=== PATIENT | female | born 1950 | race Caucasian/White ===

== ENCOUNTER 2017-04-07 16:17 | Inpatient (IN) | payer MEDICARE, MEDICAID ==
[~2017-04-07] VITALS: Ht 175.3 cm; Wt 79.1 kg
[~2017-04-07 16:17] MED LIST: ACET325T9 PO; ARIP5TAB13 PO; CHOL4POW11 PO; CYAN1TAB28 PO; DEXT15DR5 OP; DIVA500T2 PO; DONE10TA7 PO; LURA40TA PO; MAG30ORA2 PO; MAGN2400 PO; METH29OI TP; OMEP20TA8 PO; PANT40TA3 PO; PNV1TABL25 PO; POLY17PO5 PO; PRAZ1POW3 MC; PRAZ2CAP2 PO; SENN1TAB21 PO; TOPI100T8 PO; TRAM50TA PO; [UNRECOGNIZED DRUG - CODE] OP
--- NOTE | 2017-04-07 17:34 | RAD ---
CT head Indication: Dementia, altered mental status, educated Technique: CT head without IV contrast Comparison: None Findings: No pathologic extra-axial or intra-axial fluid collection. The ventricles and basal cisterns are within normal limits. No acute intracranial bleed. No loss of focal álvarez-white differentiation. No midline shift. Visualized orbits are within normal limits. No calvarial lesions. Visualized paranasal sinuses and mastoid air cells are clear. Impression: No acute intracranial process on this noncontrast CT. PQRS Compliance Statement: One or more of the following individualized dose reduction techniques were utilized for this examination: 1. Automated exposure control 2. Adjustment of the mA and/or kV according to patient size 3. Use of iterative reconstruction technique
--- NOTE | 2017-04-07 17:36 | RAD ---
Chest x-ray Indication: Cough. Technique: Portable AP upright chest x-ray Comparison: None Findings: Heart is normal in size. Lungs are clear. No pneumothorax or pleural effusion. Visualized bony thorax within normal limits. Metallic densities are seen projecting over the left hemiabdomen. Impression: No acute cardiopulmonary process. Metallic densities projecting over the left hemiabdomen. Correlate for external artifacts.
--- NOTE | 2017-04-07 18:00 | PHYS DOC ---
Past History Past Medical History: Anxiety, Depression, GERD, Migraines, Schizophrenia Past Surgical History: Knee Replacement Alcohol Use: None Drug Use: None Adult General Chief Complaint Chief Complaint: MEDICAL EXAMINATION HPI HPI 67-year-old female presenting to the emergency department as a transfer from a local longterm. The patient was planned to be admitted to our geriatric psychiatric facility, however the patient was sent to the emergency department for medical examination clearance. The patient is a poor historian and is unable to answer my questions. She is alert. She opens her eyes spontaneously. alf reports the patient has a history of rectal prolapse for which she is scheduled to have surgery in 3-4 weeks reportedly. Otherwise, the patient's longterm reports that the patient complains of pain "all over" chronically. They report this is baseline for the patient. They deny any acute changes in the patient's mental status. Onset years. Location generalized. Duration constant. No alleviating factors present. She was sent here to our geriatric psychiatric facility for increasing agitation. Review of systems was negative for chest pain shortness of breath abdominal pain nausea vomiting. All other review of systems is negative unless otherwise noted in history of present illness. ED course: 67-year-old female presenting to the emergency department today for medical screening examination and clearance with plans to admission for geriatric psychiatric facility here at our hospital. Triage vital signs show the patient had mild hypertension. Pulse rate is within normal limits. Breathing resting comfortably in the examination room saturating well on room air. The patient is afebrile. Pertinent physical examination findings show clear lungs to auscultation bilaterally abdomen is soft and nontender. During the examination the patient nonsensically states that she hurts all over. She is unable to explain and better detail what she means. Reportedly this is chronic from the longterm. Her abdomen appears to be nontender objectively. It is nondistended with normal bowel sounds with a negative McBurney's and Barbosa's sign. EKG obtained and reviewed by myself shows sinus rhythm with a regular rate. ST segments congruent. Not suggestive of ACS. I ordered for blood work to be drawn along with urinalysis and a head CT. Head CT negative. Chest x- ray obtained and reviewed by myself shows no obvious infiltrate or pneumothorax. Noted on chest x-ray that the upright and portable labile is covering the patient's clavicle and humerus which cannot be visualized on this x -ray. Unfortunately the patient's blood work was not back at 6 PM when the patient was signed out to Dr. Marshall with plans to follow-up on blood work and reexamination for medical clearance to be admitted to the psychiatric facility. Review of Systems Review of Systems SEE ABOVE Allergies Allergies Allergies Coded Allergies Type Severity Reaction Last Updated Verified codeine Allergy Intermediate 09/18/14 Yes Uncoded Allergies Type Severity Reaction Last Updated Verified spinach Adverse Reaction Unknown 09/07/14 Physical Exam Physical Exam Constitutional: Well developed, well nourished, non-toxic appearance. HENT: Normocephalic, atraumatic, bilateral external ears normal, oropharynx moist, no oral exudates, nose normal. [] Eyes: PERRLA, EOMI, conjunctiva normal, no discharge. Neck: Normal range of motion, no tenderness, supple, no stridor. [] Cardiovascular:Heart rate regular rhythm, no murmur [] Lungs & Thorax: Bilateral breath sounds clear to auscultation [] Abdomen: Bowel sounds normal, soft, no tenderness, no masses, no pulsatile masses. Skin: Warm, dry, no erythema, no rash. [] Back: No tenderness, no CVA tenderness. [] Extremities: No tenderness, no cyanosis, no clubbing, ROM intact, no edema. Neurologic: Alert and oriented X 3, normal motor function, normal sensory function, no focal deficits noted. [] Psychologic: Affect normal, judgement normal, mood normal. Current Patient Data Vital Signs Vital Signs Date Time Temp Pulse Resp B/P (MAP) Pulse Ox O2 Delivery O2 Flow Rate FiO2 04/07/17 16:19 76 20 98 Room Air EKG EKG [] Radiology/Procedures Radiology/Procedures [] Course & Med Decision Making Course & Med Decision Making Pertinent Labs and Imaging studies reviewed. (See chart for details) [] Dragon Disclaimer Dragon Disclaimer This chart was dictated in whole or in part using Voice Recognition software in a busy, high-work load, and often noisy Emergency Department environment. It may contain unintended and wholly unrecognized errors or omissions. CELESTINE BARRETO MD Apr 07, 2017 18:00
[2017-04-07 18:08] LABS: BASO % 1 % (0-3); EOS # 0.1 x10^3/uL (0.0-0.7); EOS % 2 % (0-3); HEMATOCRIT 35.2 % (36.0-47.0); LYMPH # 2.7 x10^3/uL (1.0-4.8); LYMPH % 52 % (24-48); MEAN CORPUSCULAR HEMOGLOBIN 34 pg (25-35); MEAN CORPUSCULAR HGB CONC 34 g/dL (31-37); MEAN CORPUSCULAR VOLUME 100 fL (79-100); MONO # 0.8 x10^3/uL (0.0-1.1); MONO % 14 % (0-9); NEUT # 1.6 x10^3uL (1.8-7.7); NEUT % 31 % (31-73); PLATELET COUNT 162 x10^3/uL (140-400); RED BLOOD COUNT 3.53 x10^6/uL (3.50-5.40); WHITE BLOOD COUNT 5.3 x10^3/uL (4.0-11.0)
[2017-04-07 18:16] LABS: ALBUMIN 2.9 g/dL (3.4-5.0); CALCIUM 8.5 mg/dL (8.5-10.1); CREATININE 0.7 mg/dL (0.6-1.0); DIRECT BILIRUBIN 0.1 mg/dL (0.0-0.2); GFR 83.2; POTASSIUM 4.1 mmol/L (3.5-5.1); TOTAL BILIRUBIN 0.2 mg/dL (0.2-1.0); TOTAL PROTEIN 6.2 g/dL (6.4-8.2)
--- NOTE | 2017-04-07 18:50 | EKG ---
[address] [address] Test Date: 2017-04-07 Test Time: 16:57:59 Pat Name: BARBARA FONTENOT Department: Room: Gender: F Work Station Support Specialist: SIRI : 1950 Requested By: CELESTINE BARREOT Order Number: [id number] Reading MD: Measurements Intervals [place] Rate: 66 P: 43 HI: 166 QRS: 31 QRSD: 72 T: 34 QT: 372 QTc: 392 Interpretive Statements SINUS RHYTHM NO SPECIFIC ECG ABNORMALITIES RI6.01 No previous ECG available for comparison
[2017-04-07 19:01] LABS: BACTERIA,URINE MANY /HPF (0-FEW); BILIRUBIN,URINE NEG (NEG); CLARITY,URINE TURBID; COLOR,URINE YELLOW; GLUCOSE,URINE NEG (NEG); NITRITE,URINE POS (NEG); SQUAMOUS EPITHELIAL CELL,UR MOD /LPF; UROBILINOGEN,URINE 1 mg/dL (0.2 mg/dL)
[2017-04-07] MEDS ORDERED: cefTRIAXone SODIUM 1 GM VIAL IV ONE (19:20)
[2017-04-07] MEDS ORDERED: IV NORMAL SALINE 50ML 50 ML ONE (19:20)
[2017-04-07] MEDS ORDERED: MAG HYDROX/AL HYDROX/SIMETH 30 ML ORAL.SUSP PO PRN (22:15)
[2017-04-07] MEDS ORDERED: MAGNESIUM HYDROXIDE 2,400 MG/30 ML ORAL.SUSP. PO PRN (22:15)
[2017-04-07] MEDS ORDERED: METHYL SALICYLATE/MENTHOL TOPICAL OINTMENT 29GM TUBE. TP PRN (22:15)
[2017-04-07] MEDS ORDERED: ACETAMINOPHEN 325 MG TABLET PO PRN (22:15)
[2017-04-07 22:57] VITALS: BP 127/73
[2017-04-07] MEDS ORDERED: FOLI1TAB16 PO (23:15)
[2017-04-07] MEDS ORDERED: CYAN50008 PO (23:15)
[2017-04-07] MEDS ORDERED: IBUP400T18 PO (23:15)
[2017-04-08] MEDS ORDERED: Influenza vaccine per PROTOCOL. MC PRN (00:30)
[2017-04-08] MEDS ORDERED: LORazepam 0.5 MG TABLET PO PRN (03:30)
[2017-04-08 06:30] VITALS: BP 131/96
[2017-04-08] MEDS ORDERED: ACETAMINOPHEN 325 MG TABLET PO PRN (07:00)
[2017-04-08] MEDS ORDERED: IBUPROFEN 200 MG TABLET PO PRN (08:00)
[2017-04-08] MEDS: CYANOCOBALAMIN (VITAMIN B-12) 1,000 MCG TABLET. PO SCH (08:11)
[2017-04-08] MEDS: TOPIRAMATE 100 MG TABLET. PO SCH ×2 (08:12→20:07)
[2017-04-08] MEDS: FOLIC ACID 1 MG TABLET PO SCH (08:12)
[2017-04-08] MEDS: DIVALPROEX SODIUM 250 MG TABLET.DR. PO SCH ×3 (08:12→20:07)
[2017-04-08 08:47] LABS: VAL ACID 57 mcg/mL (50-100)
[2017-04-08 14:53] LABS: THYROID STIM HORMONE (TSH) 10.24 uIU/mL (0.358-3.740)
[2017-04-08] MEDS ORDERED: FOSFOMYCIN TROMETHAMINE 3 GM PACKET PO ONE (16:30)
[2017-04-08] MEDS: ACETAMINOPHEN 325 MG TABLET PO SCH ×2 (16:37→20:13)
[2017-04-08] MEDS: IBUPROFEN 200 MG TABLET PO SCH (16:38)
[2017-04-08 16:48] VITALS: BP 103/65
--- NOTE | 2017-04-08 17:34 | HP ---
ADMIT DATE: 04/08/2017 MEDICAL HISTORY AND PHYSICAL FOR THE SENIOR BEHAVIORAL UNIT REASON FOR ADMISSION TO THE SENIOR BEHAVIORAL UNIT: This is a 67-year-old female who had a prior admission to the [facility] in 2014. She comes from [place], [place] where she has been refusing to eat, standing in her room, yelling, repetitively screaming and going to the bathroom or shower and isolating herself. She has gone from 206 pounds to 275 pounds on the intake sheet. Things that have occurred, the patient has had several teeth pulled. She has no medication changes, but the onset of symptoms started in December or January. PAST MEDICAL HISTORY: Schizoaffective disorder; prolapsed anus; dementia; posttraumatic stress disorder; anxiety; migraine headaches; hyperlipidemia; major depressive disorder, severe with psychotic features; chronic kidney disease; constipation; and recent teeth extraction. Also had an admission in September 2014 for yelling and screaming at roommates, calling staff by names, threatening other residents. ALLERGIES: CODEINE and SPINACH. MEDICATIONS: Reviewed and are available on the MAR. REVIEW OF SYSTEMS: The patient ambulated to the dining area where I examined her and started to complain of chest pain, that everywhere I touched her, she started yelling as if that hurts and kept saying "I have chest pain, I have chest pain, I have chest pain." Vital signs did not reflect the patient was not tachycardic. PHYSICAL EXAMINATION: VITAL SIGNS: Blood pressure taken during the physical exam 125/67, pulse 82, saturation 96% on room air. GENERAL: The patient has very thinning hair. HEENT: Her pupils were equal, round, react to light. Extraocular muscles are intact. Her nose was patent. Her throat was clear. NECK: Supple. LUNGS: Clear to auscultation. CARDIOVASCULAR: Regular rhythm and rate, was not pounding, there was no murmur. ABDOMEN: Soft, nontender. EXTREMITIES: Without edema. MUSCULOSKELETAL: Sore shoulders, sore knees, sore feet, palpable costochondritis type pain over the chest. NEUROLOGIC: Cranial nerves appear to be essentially intact, but she was not overly cooperative with that. Her gait is unsteady, and she was ambulating with a walker. Mood is anxious and making repetitive statements about having chest pain. LABORATORY DATA: TSH was 10.240. Iron is 40, AST 13, normal potassium. Urine positive for nitrites, 11-20 white cells, moderate squamous epithelial cells. Culture is still pending. ASSESSMENT: A 67-year-old with: 1.Schizoaffective disorder. 2.Dementia with behavior disturbance. 3.Costochondritis chest pain. 4.Urinary tract infection. 5.Myalgias. PLAN: Treat her medical conditions, treat her urinary tract infection. Adding some Synthroid if she is not on it and we will go from there. MAX WARREN DO DR: ANGELO/chely JOB#: [id number] / [id number]
[2017-04-08 19:11] LABS: T3 TOTAL 91 ng/dL (71-180); THYROXINE 5.5 ug/dL (4.5-12.0)
[2017-04-08] MEDS: ATORVASTATIN CALCIUM 20 MG TABLET PO SCH (20:12)
[2017-04-08] MEDS ORDERED: ARIPiprazole 5 MG TABLET PO SCH (21:00)
--- NOTE | 2017-04-08 21:07 | PDOC ---
Exam Brennen Demential Exam: Brennen Note: Please also refer to the separate dictated note~for this date of service dictated separately.~Patient seen individually. Discussed the patient with Nursing staff reviewed the chart.~Reviewed interim history and current functioning. Reviewed vital signs,~Labs/ Radiology~and current medications noted below. Continue current treatment with the changes noted in the dictated addendum note Assessment: Vital Signs: Vital Signs Date Time Temp Pulse Resp B/P (MAP) Pulse Ox O2 Delivery O2 Flow Rate FiO2 04/08/17 16:48 98.6 74 20 103/65 (78) 97 04/07/17 21:01 Room Air I&O Intake and Output 04/09/17 07:00 Intake Total 840 ml Balance 840 ml Intake Oral 840 ml Labs: Laboratory Tests Test 04/08/17 06:58 Valproic Acid Level 57 mcg/mL (50-100) Valproic Acid Last Dose Date 04/07/2017 Valproic Acid Last Dose Time 2100 Current Medications: Meds: Current Medications Ceftriaxone Sodium 1 gm/ Sodium Chloride 50 ml @ 100 mls/hr 1X ONCE IV Last administered on 04/07/17t 19:30; Start 04/07/17 at 19:30; Stop 04/07/17 at 19:59 ; Status DC Sodium Chloride 50 ml @ As Directed STK-MED ONCE .ROUTE ; Start 04/07/17 at 19: 20; Stop 04/07/17 at 19:21; Status DC Ceftriaxone Sodium (Rocephin) 1 gm STK-MED ONCE IV ; Start 04/07/17 at 19:20; Stop 04/07/17 at 19:21; Status DC Acetaminophen (Tylenol) 650 mg PRN Q6HRS PRN PO PAIN / TEMP; Start 04/07/17 at 22:15; Stop 04/08/17 at 15:31; Status DC Multi-Ingredient Ointment (Analgesic [place]) 1 chencho PRN QID PRN TP MUSCLE PAIN; Start 04/07/17 at 22:15 Al Hydroxide/Mg Hydroxide (Mylanta Plus Xs) 15 ml PRN AFTMEALHC PRN PO DYSPEPSIA; Start 04/07/17 at 22:15 Magnesium Hydroxide (Milk Of Magnesia) 2,400 mg PRN QHS PRN PO CONSTIPATION; Start 04/07/17 at 22:15 Info (FLU VACCINE per PROTOCOL) 1 ea PRN 1X PRN MC UNABLE TO RESPOND; Start at 00:30; Status Cancel Aripiprazole (Abilify) 10 mg HS PO Last administered on 04/08/17 20:12; Start 04/08/17 at 21:00 Topiramate (Topamax) 150 mg BID PO Last administered on 04/08/17 20:07; Start 04/08/17 at 09:00 Divalproex Sodium (Depakote) 500 mg TID PO Last administered on 04/08/17 20:07 ; Start 04/08/17 at 09:00 Lorazepam (Ativan) 1 mg PRN Q2HR PRN PO ANXIETY / AGITATION; Start 04/08/17 at 03:30 Olanzapine (ZyPREXA ZYDIS) 5 mg PRN Q2HR PRN PO Psychosis Last administered on 04/08/17 03:53; Start 04/08/17 at 03:30 Acetaminophen (Tylenol) 650 mg PRN Q6HRS PRN PO PAIN; Start 04/08/17 at 07:00 Folic Acid (Folic Acid) 1 mg DAILY PO Last administered on 04/08/17 08:12; Start 04/08/17 at 09:00 Ibuprofen (Motrin) 200 mg DAILY08 PRN PO INFLAMMATION Last administered on 04/08 08:12; Start 04/08/17 at 08:00; Stop 04/08/17 at 15:35; Status DC Cyanocobalamin (Vitamin B-12) 1,000 mcg DAILY PO Last administered on 08:11; Start 04/08/17 at 09:00 Acetaminophen (Tylenol) 650 mg Q8HRS PO Last administered on 04/08/17 20:13; Start 04/08/17 at 15:45 Fosfomycin Tromethamine (Monurol) 3 gm 1X ONCE PO Last administered on 16:38; Start 04/08/17 at 16:30; Stop 04/08/17 at 16:31; Status DC Ibuprofen (Motrin) 200 mg DAILY08 PO Last administered on 04/08/17 16:38; Start 04/08/17 at 16:30 Levothyroxine Sodium (Synthroid) 25 mcg DAILY06 PO ; Start 04/09/17 at 06:00 Atorvastatin Calcium (Lipitor) 20 mg QHS PO Last administered on 04/08/17t 20: 12; Start 04/08/17 at 21:00 Trazodone HCl (Desyrel) 50 mg PRN QHS PRN PO INSOMNIA, MAY REPEAT X1; Start at 18:30 Active Scripts Active Reported Vitamin B12 (Cyanocobalamin (Vitamin B-12)) 5,000 Mcg Tab.rapdis 1,000 Mcg PO DAILY Folic Acid 1 Mg Tablet 1 Mg PO DAILY Ibuprofen 400 Mg Tablet 200 Mg PO DAILY08 Abilify (Aripiprazole) 5 Mg Tablet 10 Mg PO HS Topiramate 100 Mg Tablet 150 Mg PO BID Depakote (Divalproex Sodium) 500 Mg Tablet.dr 500 Mg PO TID Tylenol (Acetaminophen) 325 Mg Tablet 650 Mg PO PRN Q6HRS PRN Diagnosis: Problems: (1) Depression (2) Behavioral problems (3) Anxiety disorder (4) Schizoaffective disorder, chronic condition with acute exacerbation (5) Schizophrenia, disorganized, subchronic with acute exacerbation (6) Bipolar affective, mixed, sev w/ psych VIRGIE FELDMAN MD Apr 08, 2017 21:07
[2017-04-08 22:09] LABS: HEMOGLOBIN A1C 5.2 % (4.8-5.6)
[2017-04-09] MEDS: ACETAMINOPHEN 325 MG TABLET PO SCH ×3 (05:34→19:32)
[2017-04-09] MEDS: LEVOTHYROXINE 25 MCG TABLET. PO SCH (05:35)
[2017-04-09 06:45] VITALS: BP 117/60
[2017-04-09] MEDS: TOPIRAMATE 100 MG TABLET. PO SCH ×2 (08:10→19:31)
[2017-04-09] MEDS: CYANOCOBALAMIN (VITAMIN B-12) 1,000 MCG TABLET. PO SCH (08:12)
[2017-04-09] MEDS: DIVALPROEX SODIUM 250 MG TABLET.DR. PO SCH ×3 (08:12→19:30)
[2017-04-09] MEDS: IBUPROFEN 200 MG TABLET PO SCH (08:12)
[2017-04-09] MEDS: FOLIC ACID 1 MG TABLET PO SCH (08:12)
--- NOTE | 2017-04-09 12:52 | HP ---
ADMIT DATE: 04/08/2017 PSYCHIATRIC ADMISSION HISTORY/EVALUATION This is a late entry 04/08/2017, covers elements not covered in my initial note of 04/08/2017. Met with the patient the evening of 04/08/2017, for this assessment. IDENTIFYING DATA: The patient is a 67-year-old female who returns back to us from [facility], referred by her primary care physician, Dr. Wheat and outpatient psychiatrist, Dr. Gunter on account of worsening mood swings, psychotic symptoms, agitation and aggression. The patient was refusing to eat, yelling repetitively, isolating herself, screaming. She has dropped her weight from 206 pounds in December to 175 pounds on the day of the admission. She has been repeatedly screaming when going to the bathroom or shower as a response to probable active psychosis. She has failed outpatient psychiatric interventions, referred for inpatient psychiatric stabilization. CHIEF COMPLAINT: "I had shower." HISTORY OF PRESENT ILLNESS: The patient has a history of schizoaffective disorder, bipolar type. [facility] and was last here with us in September 2014. She had been fairly stable at the jail, but for the past couple of weeks, she has been increasingly agitated, psychotic, disruptive, aggressive with marked insomnia, drop in her appetite, significant weight loss. No active suicidal or homicidal ideation, but behaviors have been dangerous to a point that she is a danger to herself and others around her, prompting this referral, having failed outpatient psychiatric interventions with Dr. Gunter. PAST PSYCHIATRIC HISTORY: As above, she was last here with us in 2014. She has a past diagnosis additionally of posttraumatic stress disorder. PAST MEDICAL HISTORY: Positive for chronic constipation, rectal prolapse surgery, chronic kidney disease, hyperlipidemia. Rectal prolapse surgery has not yet occurred however. She was noted to have a UTI in the Emergency Room, received IM Rocephin. Additionally, TSH is elevated at 10.240, will defer to Dr. Subramanian. CODE STATUS: Full code. ALLERGIES: CODEINE, SPINACH. Accu-Cheks: None. DIET: Regular. AMBULATES: Standby assist. SOCIAL HISTORY: No history of alcohol or drug abuse or physical, sexual or elder abuse. She is not known to be a perpetrator. MENTAL STATUS EXAM: The patient was seen individually evening of 04/08/2017. She is oriented to herself, quite repetitive, psychotic, appears more confused than she is baseline and this probably a combination of UTI and exacerbation of her schizoaffective disorder with active psychosis. Speech repetitive. Thought processes are loose. Insight limited, judgment marginal, language function intact. Mood and affect is quite labile. Attention span short. No active suicidal or homicidal ideation. LABORATORY DATA: Reviewed. REVIEW OF SYSTEMS: No CV, , pulmonary, eye, ENT system symptoms on review. Reliability poor. IMPRESSION: Schizoaffective disorder, bipolar type, mixed with psychotic features. History of posttraumatic stress disorder; anxiety disorder, unspecified; impulse control disorder, unspecified; urinary tract infection. Rest of the diagnoses as above. PLAN: Admit to the Geropsychiatry unit at [facility]. I will see the patient daily individually from a psychiatric standpoint. Medical followup with Dr. Subramanian/Dr. Earl. We will check a valproic acid level, adjust Depakote to reach a therapeutic level. Continue Depakote 500 mg t.i.d. for now together with Topamax 150 b.i.d., Abilify 10 mg at bedtime along with p.r.n. Ativan and p.r.n. Zyprexa. We will defer to Dr. Subramanian to address her thyroid status since she seems hypothyroid. We will also add trazodone 50 mg at bedtime and may repeat x 1 p.r.n. insomnia. Further decisions will be made post baseline assessment. VIRGIE FELDMAN MD DR: YUSUF/chely JOB#: [id number] / [id number]
[2017-04-09 16:28] VITALS: BP 108/63
[2017-04-09] MEDS: ATORVASTATIN CALCIUM 20 MG TABLET PO SCH (19:29)
--- NOTE | 2017-04-09 21:11 | PDOC ---
Exam Brennen Demential Exam: Brennen Note: Please also refer to the separate dictated note~for this date of service dictated separately.~Patient seen individually. Discussed the patient with Nursing staff reviewed the chart.~Reviewed interim history and current functioning. Reviewed vital signs,~Labs/ Radiology~and current medications noted below. Continue current treatment with the changes noted in the dictated addendum note Assessment: Vital Signs: Vital Signs Date Time Temp Pulse Resp B/P (MAP) Pulse Ox O2 Delivery O2 Flow Rate FiO2 04/09/17 16:28 98.6 67 20 108/63 (78) 96 04/09/17 06:45 Room Air I&O Intake and Output 04/10/17 07:00 Intake Total 590 ml Balance 590 ml Intake Oral 590 ml Current Medications: Meds: Current Medications Ceftriaxone Sodium 1 gm/ Sodium Chloride 50 ml @ 100 mls/hr 1X ONCE IV Last administered on 04/07/17 19:30; Start 04/07/17 at 19:30; Stop 04/07/17 at 19:59 ; Status DC Sodium Chloride 50 ml @ As Directed STK-MED ONCE .ROUTE ; Start 04/07/17 at 19: 20; Stop 04/07/17 at 19:21; Status DC Ceftriaxone Sodium (Rocephin) 1 gm STK-MED ONCE IV ; Start 04/07/17 at 19:20; Stop 04/07/17 at 19:21; Status DC Acetaminophen (Tylenol) 650 mg PRN Q6HRS PRN PO PAIN / TEMP; Start 04/07/17 at 22:15; Stop 04/08/17 at 15:31; Status DC Multi-Ingredient Ointment (Analgesic [place]) 1 chencho PRN QID PRN TP MUSCLE PAIN; Start 04/07/17 at 22:15 Al Hydroxide/Mg Hydroxide (Mylanta Plus Xs) 15 ml PRN AFTMEALHC PRN PO DYSPEPSIA; Start 04/07/17 at 22:15 Magnesium Hydroxide (Milk Of Magnesia) 2,400 mg PRN QHS PRN PO CONSTIPATION; Start 04/07/17 at 22:15 Info (FLU VACCINE per PROTOCOL) 1 ea PRN 1X PRN MC UNABLE TO RESPOND; Start at 00:30; Status Cancel Aripiprazole (Abilify) 10 mg HS PO Last administered on 04/08/17 20:12; Start 04/08/17 at 21:00; Stop 04/09/17 at 10:17; Status DC Topiramate (Topamax) 150 mg BID PO Last administered on 04/09/17 19:31; Start 04/08/17 at 09:00 Divalproex Sodium (Depakote) 500 mg TID PO Last administered on 04/09/17 19:30 ; Start 04/08/17 at 09:00 Lorazepam (Ativan) 1 mg PRN Q2HR PRN PO ANXIETY / AGITATION; Start 04/08/17 at 03:30 Olanzapine (ZyPREXA ZYDIS) 5 mg PRN Q2HR PRN PO Psychosis Last administered on 04/08/17 03:53; Start 04/08/17 at 03:30 Acetaminophen (Tylenol) 650 mg PRN Q6HRS PRN PO PAIN; Start 04/08/17 at 07:00 Folic Acid (Folic Acid) 1 mg DAILY PO Last administered on 04/09/17 08:12; Start 04/08/17 at 09:00 Ibuprofen (Motrin) 200 mg DAILY08 PRN PO INFLAMMATION Last administered on 04/08 08:12; Start 04/08/17 at 08:00; Stop 04/08/17 at 15:35; Status DC Cyanocobalamin (Vitamin B-12) 1,000 mcg DAILY PO Last administered on 08:12; Start 04/08/17 at 09:00 Acetaminophen (Tylenol) 650 mg Q8HRS PO Last administered on 04/09/17 19:32; Start 04/08/17 at 15:45 Fosfomycin Tromethamine (Monurol) 3 gm 1X ONCE PO Last administered on 16:38; Start 04/08/17 at 16:30; Stop 04/08/17 at 16:31; Status DC Ibuprofen (Motrin) 200 mg DAILY08 PO Last administered on 04/09/17 08:12; Start 04/08/17 at 16:30 Levothyroxine Sodium (Synthroid) 25 mcg DAILY06 PO Last administered on 05:35; Start 04/09/17 at 06:00 Atorvastatin Calcium (Lipitor) 20 mg QHS PO Last administered on 10/5/17at 19: 29; Start 04/08/17 at 21:00 Trazodone HCl (Desyrel) 50 mg PRN QHS PRN PO INSOMNIA, MAY REPEAT X1; Start at 18:30 Aripiprazole (Abilify) 20 mg QHS PO ; Start 04/10/17 at 21:00 Active Scripts Active Reported Vitamin B12 (Cyanocobalamin (Vitamin B-12)) 5,000 Mcg Tab.rapdis 1,000 Mcg PO DAILY Folic Acid 1 Mg Tablet 1 Mg PO DAILY Ibuprofen 400 Mg Tablet 200 Mg PO DAILY08 Abilify (Aripiprazole) 5 Mg Tablet 10 Mg PO HS Topiramate 100 Mg Tablet 150 Mg PO BID Depakote (Divalproex Sodium) 500 Mg Tablet.dr 500 Mg PO TID Tylenol (Acetaminophen) 325 Mg Tablet 650 Mg PO PRN Q6HRS PRN Diagnosis: Problems: (1) Depression (2) Behavioral problems (3) Anxiety disorder (4) Schizoaffective disorder, chronic condition with acute exacerbation (5) Schizophrenia, disorganized, subchronic with acute exacerbation (6) Bipolar affective, mixed, sev w/ psych VIRGIE FELDMAN MD Apr 09, 2017 21:11
[2017-04-10] MEDS: LEVOTHYROXINE 25 MCG TABLET. PO SCH (05:16)
[2017-04-10] MEDS: ACETAMINOPHEN 325 MG TABLET PO SCH ×3 (05:16→20:22)
[2017-04-10 06:10] VITALS: BP 122/78
[2017-04-10] MEDS: DIVALPROEX SODIUM 250 MG TABLET.DR. PO SCH ×3 (09:11→20:20)
[2017-04-10] MEDS: CYANOCOBALAMIN (VITAMIN B-12) 1,000 MCG TABLET. PO SCH (09:11)
[2017-04-10] MEDS: TOPIRAMATE 100 MG TABLET. PO SCH ×2 (09:11→20:20)
[2017-04-10] MEDS: FOLIC ACID 1 MG TABLET PO SCH (09:11)
[2017-04-10] MEDS: IBUPROFEN 200 MG TABLET PO SCH (09:11)
[2017-04-10] MEDS: CHOLECALCIFEROL (VITAMIN D3) 50,000 UNIT CAPSULE PO SCH (09:12)
[2017-04-10 15:55] VITALS: BP 117/77
[2017-04-10] MEDS: ATORVASTATIN CALCIUM 20 MG TABLET PO SCH (20:20)
[2017-04-10] MEDS: ARIPiprazole 10 MG TABLET PO SCH (20:22)
[2017-04-10] MEDS ORDERED: ARIPiprazole 10 MG TABLET PO SCH (21:00)
--- NOTE | 2017-04-10 21:18 | PDOC ---
Exam Brennen Demential Exam: Brennen Note: Please also refer to the separate dictated note~for this date of service dictated separately.~Patient seen individually. Discussed the patient with Nursing staff reviewed the chart.~Reviewed interim history and current functioning. Reviewed vital signs,~Labs/ Radiology~and current medications noted below. Continue current treatment with the changes noted in the dictated addendum note Assessment: Vital Signs: Vital Signs Date Time Temp Pulse Resp B/P (MAP) Pulse Ox O2 Delivery O2 Flow Rate FiO2 04/10/17 15:55 97.7 84 16 117/77 (90) 95 04/09/17 06:45 Room Air I&O Intake and Output 04/11/17 07:00 Intake Total 1200 ml Balance 1200 ml Intake Oral 1200 ml Current Medications: Meds: Current Medications Ceftriaxone Sodium 1 gm/ Sodium Chloride 50 ml @ 100 mls/hr 1X ONCE IV Last administered on 04/07/17 19:30; Start 04/07/17 at 19:30; Stop 04/07/17 at 19:59 ; Status DC Sodium Chloride 50 ml @ As Directed STK-MED ONCE .ROUTE ; Start 04/07/17 at 19: 20; Stop 04/07/17 at 19:21; Status DC Ceftriaxone Sodium (Rocephin) 1 gm STK-MED ONCE IV ; Start 04/07/17 at 19:20; Stop 04/07/17 at 19:21; Status DC Acetaminophen (Tylenol) 650 mg PRN Q6HRS PRN PO PAIN / TEMP; Start 04/07/17 at 22:15; Stop 04/08/17 at 15:31; Status DC Multi-Ingredient Ointment (Analgesic [place]) 1 chencho PRN QID PRN TP MUSCLE PAIN; Start 04/07/17 at 22:15 Al Hydroxide/Mg Hydroxide (Mylanta Plus Xs) 15 ml PRN AFTMEALHC PRN PO DYSPEPSIA; Start 04/07/17 at 22:15 Magnesium Hydroxide (Milk Of Magnesia) 2,400 mg PRN QHS PRN PO CONSTIPATION; Start 04/07/17 at 22:15 Info (FLU VACCINE per PROTOCOL) 1 ea PRN 1X PRN [facility] UNABLE TO RESPOND; Start at 00:30; Status Cancel Aripiprazole (Abilify) 10 mg HS PO Last administered on 04/08/17 20:12; Start 04/08/17 at 21:00; Stop 04/09/17 at 10:17; Status DC Topiramate (Topamax) 150 mg BID PO Last administered on 04/10/17 20:20; Start 04/08/17 at 09:00 Divalproex Sodium (Depakote) 500 mg TID PO Last administered on 04/10/17 20:20 ; Start 04/08/17 at 09:00 Lorazepam (Ativan) 1 mg PRN Q2HR PRN PO ANXIETY / AGITATION; Start 04/08/17 at 03:30 Olanzapine (ZyPREXA ZYDIS) 5 mg PRN Q2HR PRN PO Psychosis Last administered on 04/10/17 20:24; Start 04/08/17 at 03:30 Acetaminophen (Tylenol) 650 mg PRN Q6HRS PRN PO PAIN; Start 04/08/17 at 07:00 Folic Acid (Folic Acid) 1 mg DAILY PO Last administered on 04/10/17 09:11; Start 04/08/17 at 09:00 Ibuprofen (Motrin) 200 mg DAILY08 PRN PO INFLAMMATION Last administered on 04/08 08:12; Start 04/08/17 at 08:00; Stop 04/08/17 at 15:35; Status DC Cyanocobalamin (Vitamin B-12) 1,000 mcg DAILY PO Last administered on 09:11; Start 04/08/17 at 09:00 Acetaminophen (Tylenol) 650 mg Q8HRS PO Last administered on 04/10/17 20:22; Start 04/08/17 at 15:45 Fosfomycin Tromethamine (Monurol) 3 gm 1X ONCE PO Last administered on 16:38; Start 04/08/17 at 16:30; Stop 04/08/17 at 16:31; Status DC Ibuprofen (Motrin) 200 mg DAILY08 PO Last administered on 04/10/17 09:11; Start 04/08/17 at 16:30 Levothyroxine Sodium (Synthroid) 25 mcg DAILY06 PO Last administered on 05:16; Start 04/09/17 at 06:00 Atorvastatin Calcium (Lipitor) 20 mg QHS PO Last administered on 04/10/17 20: 20; Start 04/08/17 at 21:00 Trazodone HCl (Desyrel) 50 mg PRN QHS PRN PO INSOMNIA, MAY REPEAT X1; Start at 18:30 Aripiprazole (Abilify) 20 mg QHS PO ; Start 04/10/17 at 21:00; Stop 04/10/17 at 21:00; Status DC Vitamin D (Vitamin D3) 50,000 unit WEEKLY PO Last administered on 04/10/17 09: 12; Start 04/10/17 at 09:00 Aripiprazole (Abilify) 30 mg QHS PO Last administered on 04/10/17 20:22; Start 04/10/17 at 21:00 Active Scripts Active Reported Vitamin B12 (Cyanocobalamin (Vitamin B-12)) 5,000 Mcg Tab.rapdis 1,000 Mcg PO DAILY Folic Acid 1 Mg Tablet 1 Mg PO DAILY Ibuprofen 400 Mg Tablet 200 Mg PO DAILY08 Abilify (Aripiprazole) 5 Mg Tablet 10 Mg PO HS Topiramate 100 Mg Tablet 150 Mg PO BID Depakote (Divalproex Sodium) 500 Mg Tablet.dr 500 Mg PO TID Tylenol (Acetaminophen) 325 Mg Tablet 650 Mg PO PRN Q6HRS PRN Diagnosis: Problems: (1) Depression (2) Behavioral problems (3) Anxiety disorder (4) Schizoaffective disorder, chronic condition with acute exacerbation (5) Schizophrenia, disorganized, subchronic with acute exacerbation (6) Bipolar affective, mixed, sev w/ psych VIRGIE FELDMAN MD Apr 10, 2017 21:18
--- NOTE | 2017-04-11 00:36 | PN ---
DATE: 04/09/2017 PSYCHIATRIC PROGRESS NOTE This late entry 04/09/2017 covers elements not covered in my initial note of 04/09/2017. SUBJECTIVE: I met with the patient in the evening of 04/09/2017 staffed at a treatment team meeting morning of 04/09/2017. The patient remains quite anxious, restless, somatically preoccupied, complaining of chest pain, repeating things over and over, has to be coaxed to take her medications "I have already taken medications." REVIEW OF SYSTEMS: Ambulation somewhat impaired. No CV, , pulmonary, eye, ENT system symptoms on review, does complain of vague chest pain. MENTAL STATUS EXAM: Oriented to herself. Insight, judgment, recent memory is impaired. Language function intact. Attention span short. Mood and affect labile. She is still quite psychotic, distractable. No suicidal or homicidal ideation. Valproic acid level therapeutic at 57. IMPRESSION: Schizoaffective disorder, bipolar type, mixed with psychotic features; anxiety disorder, unspecified; cognitive disorder, unspecified; impulse control disorder, unspecified. Rest unchanged. PLAN: Increase Abilify from 10 mg a day to 20 mg a day, given her ongoing psychotic symptoms. Continue Depakote 500 mg 3 times a day, trazodone 50 mg at bedtime p.r.n. may repeat x 1, Topamax 150 b.i.d., Ativan and Zyprexa p.r.n. Review drug interactions, risk/benefit ratio favors no further change. VIRGIE FELDMAN MD DR: YUSUF/chely JOB#: [id number] / [id number]
[2017-04-11] MEDS: ACETAMINOPHEN 325 MG TABLET PO SCH ×3 (05:19→20:11)
[2017-04-11] MEDS: LEVOTHYROXINE 25 MCG TABLET. PO SCH (05:19)
[2017-04-11 06:09] VITALS: BP 109/72
[2017-04-11] MEDS: DIVALPROEX SODIUM 250 MG TABLET.DR. PO SCH ×3 (08:23→20:10)
[2017-04-11] MEDS: IBUPROFEN 200 MG TABLET PO SCH (08:23)
[2017-04-11] MEDS: TOPIRAMATE 100 MG TABLET. PO SCH ×2 (08:23→20:10)
[2017-04-11] MEDS: FOLIC ACID 1 MG TABLET PO SCH (08:23)
[2017-04-11] MEDS: CYANOCOBALAMIN (VITAMIN B-12) 1,000 MCG TABLET. PO SCH (08:24)
[2017-04-11 16:18] VITALS: BP 101/63
--- NOTE | 2017-04-11 17:50 | PN ---
DATE: 04/10/2017 PSYCHIATRIC PROGRESS NOTE This is a late entry 04/10/2017, covers elements not covered in my initial note of 04/10/2017. SUBJECTIVE: I met with the patient the evening of 04/10/2017. The patient remains confused, quite psychotic, repetitive, helpless, repeating phrases. She did some yoga in the afternoon, was calmer during that session, which is quite an improvement, compliant with her medications. REVIEW OF SYSTEMS: Ambulation impaired. No CV, , pulmonary, eye, ENT system symptoms on review. She is in a wheelchair. MENTAL STATUS EXAM: Oriented to herself, at times situation. Speech coherent, repetitive. Abstraction fair, computation impaired, language function intact, attention span short. Mood and affect remains labile. IMPRESSION: Unchanged from initial note. PLAN: Continue current psychotropics, increase Abilify from 20 mg a day to 30 mg a day. Maintain the rest of his psychotropics. Review drug interactions. Risk/benefit ratio favors no further change. MAN Chloé FELDMAN MD DR: YUSUF/chely JOB#: [id number] / [id number]
[2017-04-11] MEDS: ARIPiprazole 10 MG TABLET PO SCH (20:10)
[2017-04-11] MEDS: ATORVASTATIN CALCIUM 20 MG TABLET PO SCH (20:10)
--- NOTE | 2017-04-11 23:00 | PDOC ---
Exam Brennen Demential Exam: Brennen Note: Please also refer to the separate dictated note~for this date of service dictated separately.~Patient seen individually. Discussed the patient with Nursing staff reviewed the chart.~Reviewed interim history and current functioning. Reviewed vital signs,~Labs/ Radiology~and current medications noted below. Continue current treatment with the changes noted in the dictated addendum note Assessment: Vital Signs: Vital Signs Date Time Temp Pulse Resp B/P (MAP) Pulse Ox O2 Delivery O2 Flow Rate FiO2 04/11/17 16:18 97.0 61 18 101/63 (76) 95 04/11/17 06:09 Room Air I&O Intake and Output 04/12/17 07:00 Intake Total 1080 ml Balance 1080 ml Intake Oral 1080 ml Current Medications: Meds: Current Medications Ceftriaxone Sodium 1 gm/ Sodium Chloride 50 ml @ 100 mls/hr 1X ONCE IV Last administered on 04/07/17 19:30; Start 04/07/17 at 19:30; Stop 04/07/17 at 19:59 ; Status DC Sodium Chloride 50 ml @ As Directed STK-MED ONCE .ROUTE ; Start 04/07/17 at 19: 20; Stop 04/07/17 at 19:21; Status DC Ceftriaxone Sodium (Rocephin) 1 gm STK-MED ONCE IV ; Start 04/07/17 at 19:20; Stop 04/07/17 at 19:21; Status DC Acetaminophen (Tylenol) 650 mg PRN Q6HRS PRN PO PAIN / TEMP; Start 04/07/17 at 22:15; Stop 04/08/17 at 15:31; Status DC Multi-Ingredient Ointment (Analgesic [place]) 1 chencho PRN QID PRN TP MUSCLE PAIN; Start 04/07/17 at 22:15 Al Hydroxide/Mg Hydroxide (Mylanta Plus Xs) 15 ml PRN AFTMEALHC PRN PO DYSPEPSIA; Start 04/07/17 at 22:15 Magnesium Hydroxide (Milk Of Magnesia) 2,400 mg PRN QHS PRN PO CONSTIPATION; Start 04/07/17 at 22:15 Info (FLU VACCINE per PROTOCOL) 1 ea PRN 1X PRN [facility] UNABLE TO RESPOND; Start at 00:30; Status Cancel Aripiprazole (Abilify) 10 mg HS PO Last administered on 04/08/17 20:12; Start 04/08/17 at 21:00; Stop 04/09/17 at 10:17; Status DC Topiramate (Topamax) 150 mg BID PO Last administered on 04/11/17 20:10; Start 04/08/17 at 09:00 Divalproex Sodium (Depakote) 500 mg TID PO Last administered on 04/11/17 20:10 ; Start 04/08/17 at 09:00 Lorazepam (Ativan) 1 mg PRN Q2HR PRN PO ANXIETY / AGITATION; Start 04/08/17 at 03:30 Olanzapine (ZyPREXA ZYDIS) 5 mg PRN Q2HR PRN PO Psychosis Last administered on 04/10/17 20:24; Start 04/08/17 at 03:30 Acetaminophen (Tylenol) 650 mg PRN Q6HRS PRN PO PAIN; Start 04/08/17 at 07:00 Folic Acid (Folic Acid) 1 mg DAILY PO Last administered on 04/11/17 08:23; Start 04/08/17 at 09:00 Ibuprofen (Motrin) 200 mg DAILY08 PRN PO INFLAMMATION Last administered on 04/08 08:12; Start 04/08/17 at 08:00; Stop 04/08/17 at 15:35; Status DC Cyanocobalamin (Vitamin B-12) 1,000 mcg DAILY PO Last administered on 08:24; Start 04/08/17 at 09:00 Acetaminophen (Tylenol) 650 mg Q8HRS PO Last administered on 04/11/17 20:11; Start 04/08/17 at 15:45 Fosfomycin Tromethamine (Monurol) 3 gm 1X ONCE PO Last administered on 16:38; Start 04/08/17 at 16:30; Stop 04/08/17 at 16:31; Status DC Ibuprofen (Motrin) 200 mg DAILY08 PO Last administered on 04/11/17 08:23; Start 04/08/17 at 16:30 Levothyroxine Sodium (Synthroid) 25 mcg DAILY06 PO Last administered on 05:19; Start 04/09/17 at 06:00 Atorvastatin Calcium (Lipitor) 20 mg QHS PO Last administered on 04/11/17 20: 10; Start 04/08/17 at 21:00 Trazodone HCl (Desyrel) 50 mg PRN QHS PRN PO INSOMNIA, MAY REPEAT X1; Start at 18:30 Aripiprazole (Abilify) 20 mg QHS PO ; Start 04/10/17 at 21:00; Stop 04/10/17 at 21:00; Status DC Vitamin D (Vitamin D3) 50,000 unit WEEKLY PO Last administered on 04/10/17 09: 12; Start 04/10/17 at 09:00 Aripiprazole (Abilify) 30 mg QHS PO Last administered on 04/11/17 20:10; Start 04/10/17 at 21:00 Active Scripts Active Reported Vitamin B12 (Cyanocobalamin (Vitamin B-12)) 5,000 Mcg Tab.rapdis 1,000 Mcg PO DAILY Folic Acid 1 Mg Tablet 1 Mg PO DAILY Ibuprofen 400 Mg Tablet 200 Mg PO DAILY08 Abilify (Aripiprazole) 5 Mg Tablet 10 Mg PO HS Topiramate 100 Mg Tablet 150 Mg PO BID Depakote (Divalproex Sodium) 500 Mg Tablet.dr 500 Mg PO TID Tylenol (Acetaminophen) 325 Mg Tablet 650 Mg PO PRN Q6HRS PRN Diagnosis: Problems: (1) Depression (2) Behavioral problems (3) Anxiety disorder (4) Schizoaffective disorder, chronic condition with acute exacerbation (5) Schizophrenia, disorganized, subchronic with acute exacerbation (6) Bipolar affective, mixed, sev w/ psych VIRGIE FELDMAN MD Apr 11, 2017 23:00
[2017-04-12] MEDS: LEVOTHYROXINE 25 MCG TABLET. PO SCH (05:52)
[2017-04-12] MEDS: ACETAMINOPHEN 325 MG TABLET PO SCH ×3 (05:52→20:25)
[2017-04-12 06:00] VITALS: BP 106/71
[2017-04-12] MEDS: IBUPROFEN 200 MG TABLET PO SCH (08:16)
[2017-04-12] MEDS: DIVALPROEX SODIUM 250 MG TABLET.DR. PO SCH ×3 (08:17→20:23)
[2017-04-12] MEDS: FOLIC ACID 1 MG TABLET PO SCH (08:17)
[2017-04-12] MEDS: TOPIRAMATE 100 MG TABLET. PO SCH ×2 (08:18→20:25)
[2017-04-12] MEDS: CYANOCOBALAMIN (VITAMIN B-12) 1,000 MCG TABLET. PO SCH (08:18)
[2017-04-12 15:52] VITALS: BP 110/68
[2017-04-12] MEDS: ARIPiprazole 10 MG TABLET PO SCH (20:24)
[2017-04-12] MEDS: ATORVASTATIN CALCIUM 20 MG TABLET PO SCH (20:24)
[2017-04-12] MEDS: traZODone 50 MG TABLET. PO PRN (20:26)
--- NOTE | 2017-04-12 20:45 | PDOC ---
Exam Brennen Demential Exam: Brennen Note: Please also refer to the separate dictated note~for this date of service dictated separately.~Patient seen individually. Discussed the patient with Nursing staff reviewed the chart.~Reviewed interim history and current functioning. Reviewed vital signs,~Labs/ Radiology~and current medications noted below. Continue current treatment with the changes noted in the dictated addendum note Assessment: Vital Signs: Vital Signs Date Time Temp Pulse Resp B/P (MAP) Pulse Ox O2 Delivery O2 Flow Rate FiO2 04/12/17 15:52 98.6 69 20 110/68 (82) 94 04/11/17 06:09 Room Air I&O Intake and Output 04/13/17 07:00 Intake Total 480 ml Balance 480 ml Intake Oral 480 ml # Bowel Movements 1 Current Medications: Meds: Current Medications Ceftriaxone Sodium 1 gm/ Sodium Chloride 50 ml @ 100 mls/hr 1X ONCE IV Last administered on 04/07/17 19:30; Start 04/07/17 at 19:30; Stop 04/07/17 at 19:59 ; Status DC Sodium Chloride 50 ml @ As Directed STK-MED ONCE .ROUTE ; Start 04/07/17 at 19: 20; Stop 04/07/17 at 19:21; Status DC Ceftriaxone Sodium (Rocephin) 1 gm STK-MED ONCE IV ; Start 04/07/17 at 19:20; Stop 04/07/17 at 19:21; Status DC Acetaminophen (Tylenol) 650 mg PRN Q6HRS PRN PO PAIN / TEMP; Start 04/07/17 at 22:15; Stop 04/08/17 at 15:31; Status DC Multi-Ingredient Ointment (Analgesic [place]) 1 chencho PRN QID PRN TP MUSCLE PAIN; Start 04/07/17 at 22:15 Al Hydroxide/Mg Hydroxide (Mylanta Plus Xs) 15 ml PRN AFTMEALHC PRN PO DYSPEPSIA; Start 04/07/17 at 22:15 Magnesium Hydroxide (Milk Of Magnesia) 2,400 mg PRN QHS PRN PO CONSTIPATION; Start 04/07/17 at 22:15 Info (FLU VACCINE per PROTOCOL) 1 ea PRN 1X PRN [facility] UNABLE TO RESPOND; Start at 00:30; Status Cancel Aripiprazole (Abilify) 10 mg HS PO Last administered on 04/08/17 20:12; Start 04/08/17 at 21:00; Stop 04/09/17 at 10:17; Status DC Topiramate (Topamax) 150 mg BID PO Last administered on 04/12/17 20:25; Start 04/08/17 at 09:00 Divalproex Sodium (Depakote) 500 mg TID PO Last administered on 04/12/17 20:23 ; Start 04/08/17 at 09:00 Lorazepam (Ativan) 1 mg PRN Q2HR PRN PO ANXIETY / AGITATION; Start 04/08/17 at 03:30 Olanzapine (ZyPREXA ZYDIS) 5 mg PRN Q2HR PRN PO Psychosis Last administered on 04/10/17 20:24; Start 04/08/17 at 03:30 Acetaminophen (Tylenol) 650 mg PRN Q6HRS PRN PO PAIN; Start 04/08/17 at 07:00 Folic Acid (Folic Acid) 1 mg DAILY PO Last administered on 04/12/17 08:17; Start 04/08/17 at 09:00 Ibuprofen (Motrin) 200 mg DAILY08 PRN PO INFLAMMATION Last administered on 04/08 08:12; Start 04/08/17 at 08:00; Stop 04/08/17 at 15:35; Status DC Cyanocobalamin (Vitamin B-12) 1,000 mcg DAILY PO Last administered on 08:18; Start 04/08/17 at 09:00 Acetaminophen (Tylenol) 650 mg Q8HRS PO Last administered on 04/12/17 20:25; Start 04/08/17 at 15:45 Fosfomycin Tromethamine (Monurol) 3 gm 1X ONCE PO Last administered on 16:38; Start 04/08/17 at 16:30; Stop 04/08/17 at 16:31; Status DC Ibuprofen (Motrin) 200 mg DAILY08 PO Last administered on 04/12/17 08:16; Start 04/08/17 at 16:30 Levothyroxine Sodium (Synthroid) 25 mcg DAILY06 PO Last administered on 05:52; Start 04/09/17 at 06:00 Atorvastatin Calcium (Lipitor) 20 mg QHS PO Last administered on 04/12/17 20: 24; Start 04/08/17 at 21:00 Trazodone HCl (Desyrel) 50 mg PRN QHS PRN PO INSOMNIA, MAY REPEAT X1 Last administered on 04/12/17 20:26; Start 04/08/17 at 18:30 Aripiprazole (Abilify) 20 mg QHS PO ; Start 04/10/17 at 21:00; Stop 04/10/17 at 21:00; Status DC Vitamin D (Vitamin D3) 50,000 unit WEEKLY PO Last administered on 04/10/17 09: 12; Start 04/10/17 at 09:00 Aripiprazole (Abilify) 30 mg QHS PO Last administered on 04/12/17 20:24; Start 04/10/17 at 21:00 Active Scripts Active Reported Vitamin B12 (Cyanocobalamin (Vitamin B-12)) 5,000 Mcg Tab.rapdis 1,000 Mcg PO DAILY Folic Acid 1 Mg Tablet 1 Mg PO DAILY Ibuprofen 400 Mg Tablet 200 Mg PO DAILY08 Abilify (Aripiprazole) 5 Mg Tablet 10 Mg PO HS Topiramate 100 Mg Tablet 150 Mg PO BID Depakote (Divalproex Sodium) 500 Mg Tablet.dr 500 Mg PO TID Tylenol (Acetaminophen) 325 Mg Tablet 650 Mg PO PRN Q6HRS PRN Diagnosis: Problems: (1) Depression (2) Behavioral problems (3) Anxiety disorder (4) Schizoaffective disorder, chronic condition with acute exacerbation (5) Schizophrenia, disorganized, subchronic with acute exacerbation (6) Bipolar affective, mixed, sev w/ psych VIRGIE FELDMAN MD Apr 12, 2017 20:44
--- NOTE | 2017-04-12 22:35 | PN ---
DATE: 04/11/2017 This is late entry for 04/11/2017 covers elements not covered in my initial note of 04/11/2017. SUBJECTIVE: I met with the patient in the evening of 04/11/2017. The patient continues to be withdrawn, repeats phrases, spends much time in her room, somatically preoccupied. REVIEW OF SYSTEMS: No CV, , pulmonary, eye, ENT system symptoms on review. Reliability poor. MENTAL STATUS EXAM: Oriented to herself. Insight, judgment, recent and remote memory, attention, concentration, fund of knowledge poor, consistent with her diagnosis as mentioned in my initial note. IMPRESSION: Schizoaffective disorder, bipolar type, mixed with psychotic features; anxiety disorder, unspecified; impulse control disorder, unspecified; cognitive disorder, unspecified versus major neurocognitive disorder, early Alzheimer, vascular with delusions. Rest unchanged. PLAN: Continue current psychotropics. Valproic acid level therapeutic at 57. Maintain Depakote 500 mg three times a day, trazodone at night, Topamax 150 mg b.i.d., Abilify 30 mg at bedtime, which was recently increased, Zyprexa and Ativan p.r.n. Reviewed drug interactions. Risk/benefit ratio favors no further change for now. VIRGIE FELDMAN MD DR: YUSUF/chely JOB#: [id number] / [id number]
[2017-04-13] MEDS: ACETAMINOPHEN 325 MG TABLET PO SCH ×3 (05:43→19:55)
[2017-04-13] MEDS: LEVOTHYROXINE 25 MCG TABLET. PO SCH (05:43)
[2017-04-13 06:27] VITALS: BP 118/73
[2017-04-13] MEDS: IBUPROFEN 200 MG TABLET PO SCH (08:05)
[2017-04-13] MEDS: DIVALPROEX SODIUM 250 MG TABLET.DR. PO SCH ×3 (08:05→19:54)
[2017-04-13] MEDS: FOLIC ACID 1 MG TABLET PO SCH (08:05)
[2017-04-13] MEDS: CYANOCOBALAMIN (VITAMIN B-12) 1,000 MCG TABLET. PO SCH (08:05)
[2017-04-13] MEDS: TOPIRAMATE 100 MG TABLET. PO SCH ×2 (08:05→19:54)
[2017-04-13 16:14] VITALS: BP 104/69
[2017-04-13] MEDS: ATORVASTATIN CALCIUM 20 MG TABLET PO SCH (19:54)
[2017-04-13] MEDS: ARIPiprazole 10 MG TABLET PO SCH (19:55)
[2017-04-13] MEDS: traZODone 50 MG TABLET. PO PRN (19:56)
--- NOTE | 2017-04-13 20:31 | PDOC ---
Exam Brennen Demential Exam: Brennen Note: Please also refer to the separate dictated note~for this date of service dictated separately.~Patient seen individually. Discussed the patient with Nursing staff reviewed the chart.~Reviewed interim history and current functioning. Reviewed vital signs,~Labs/ Radiology~and current medications noted below. Continue current treatment with the changes noted in the dictated addendum note Assessment: Vital Signs: Vital Signs Date Time Temp Pulse Resp B/P (MAP) Pulse Ox O2 Delivery O2 Flow Rate FiO2 04/13/17 16:14 97.9 65 18 104/69 (81) 95 Room Air I&O Intake and Output 04/14/17 07:00 Intake Total 480 ml Balance 480 ml Intake Oral 480 ml Current Medications: Meds: Current Medications Ceftriaxone Sodium 1 gm/ Sodium Chloride 50 ml @ 100 mls/hr 1X ONCE IV Last administered on 04/07/17 19:30; Start 04/07/17 at 19:30; Stop 04/07/17 at 19:59 ; Status DC Sodium Chloride 50 ml @ As Directed STK-MED ONCE .ROUTE ; Start 04/07/17 at 19: 20; Stop 04/07/17 at 19:21; Status DC Ceftriaxone Sodium (Rocephin) 1 gm STK-MED ONCE IV ; Start 04/07/17 at 19:20; Stop 04/07/17 at 19:21; Status DC Acetaminophen (Tylenol) 650 mg PRN Q6HRS PRN PO PAIN / TEMP; Start 04/07/17 at 22:15; Stop 04/08/17 at 15:31; Status DC Multi-Ingredient Ointment (Analgesic [place]) 1 chencho PRN QID PRN TP MUSCLE PAIN; Start 04/07/17 at 22:15 Al Hydroxide/Mg Hydroxide (Mylanta Plus Xs) 15 ml PRN AFTMEALHC PRN PO DYSPEPSIA; Start 04/07/17 at 22:15 Magnesium Hydroxide (Milk Of Magnesia) 2,400 mg PRN QHS PRN PO CONSTIPATION; Start 04/07/17 at 22:15 Info (FLU VACCINE per PROTOCOL) 1 ea PRN 1X PRN [facility] UNABLE TO RESPOND; Start at 00:30; Status Cancel Aripiprazole (Abilify) 10 mg HS PO Last administered on 04/08/17 20:12; Start 04/08/17 at 21:00; Stop 04/09/17 at 10:17; Status DC Topiramate (Topamax) 150 mg BID PO Last administered on 04/13/17 19:54; Start 04/08/17 at 09:00 Divalproex Sodium (Depakote) 500 mg TID PO Last administered on 04/13/17 19:54 ; Start 04/08/17 at 09:00 Lorazepam (Ativan) 1 mg PRN Q2HR PRN PO ANXIETY / AGITATION; Start 04/08/17 at 03:30 Olanzapine (ZyPREXA ZYDIS) 5 mg PRN Q2HR PRN PO Psychosis Last administered on 04/10/17 20:24; Start 04/08/17 at 03:30 Acetaminophen (Tylenol) 650 mg PRN Q6HRS PRN PO PAIN; Start 04/08/17 at 07:00 Folic Acid (Folic Acid) 1 mg DAILY PO Last administered on 04/13/17 08:05; Start 04/08/17 at 09:00 Ibuprofen (Motrin) 200 mg DAILY08 PRN PO INFLAMMATION Last administered on 04/08 08:12; Start 04/08/17 at 08:00; Stop 04/08/17 at 15:35; Status DC Cyanocobalamin (Vitamin B-12) 1,000 mcg DAILY PO Last administered on 08:05; Start 04/08/17 at 09:00 Acetaminophen (Tylenol) 650 mg Q8HRS PO Last administered on 04/13/17 19:55; Start 04/08/17 at 15:45 Fosfomycin Tromethamine (Monurol) 3 gm 1X ONCE PO Last administered on 16:38; Start 04/08/17 at 16:30; Stop 04/08/17 at 16:31; Status DC Ibuprofen (Motrin) 200 mg DAILY08 PO Last administered on 04/13/17 08:05; Start 04/08/17 at 16:30 Levothyroxine Sodium (Synthroid) 25 mcg DAILY06 PO Last administered on 05:43; Start 04/09/17 at 06:00 Atorvastatin Calcium (Lipitor) 20 mg QHS PO Last administered on 04/13/17 19: 54; Start 04/08/17 at 21:00 Trazodone HCl (Desyrel) 50 mg PRN QHS PRN PO INSOMNIA, MAY REPEAT X1 Last administered on 04/13/17 19:56; Start 04/08/17 at 18:30 Aripiprazole (Abilify) 20 mg QHS PO ; Start 04/10/17 at 21:00; Stop 04/10/17 at 21:00; Status DC Vitamin D (Vitamin D3) 50,000 unit WEEKLY PO Last administered on 04/10/17 09: 12; Start 04/10/17 at 09:00 Aripiprazole (Abilify) 30 mg QHS PO Last administered on 04/13/17 19:55; Start 04/10/17 at 21:00 Active Scripts Active Reported Vitamin B12 (Cyanocobalamin (Vitamin B-12)) 5,000 Mcg Tab.rapdis 1,000 Mcg PO DAILY Folic Acid 1 Mg Tablet 1 Mg PO DAILY Ibuprofen 400 Mg Tablet 200 Mg PO DAILY08 Abilify (Aripiprazole) 5 Mg Tablet 10 Mg PO HS Topiramate 100 Mg Tablet 150 Mg PO BID Depakote (Divalproex Sodium) 500 Mg Tablet.dr 500 Mg PO TID Tylenol (Acetaminophen) 325 Mg Tablet 650 Mg PO PRN Q6HRS PRN Diagnosis: Problems: (1) Depression (2) Behavioral problems (3) Anxiety disorder (4) Schizoaffective disorder, chronic condition with acute exacerbation (5) Schizophrenia, disorganized, subchronic with acute exacerbation (6) Bipolar affective, mixed, sev w/ psych VIRGIE FELDMAN MD Apr 13, 2017 20:31
--- NOTE | 2017-04-13 23:38 | PN ---
DATE: 04/12/2017 PSYCHIATRIC PROGRESS NOTE This late entry 04/12/2017 covers elements, not covered in my initial note of 04/12/2017. SUBJECTIVE: I met with the patient evening of 04/12/2017. Overall, per nursing report, the patient has done little better. She still ____ isolated, spends much time in her room, but her daughter visited and told the nursing staff that this is the best she has seen the patient doing in a long time. She seemed less psychotic, but still repetitive, demanding at times somatic. REVIEW OF SYSTEMS: Vague somatic symptoms. No CV, , pulmonary, eye, ENT system symptoms on review. MENTAL STATUS EXAM: Oriented to herself and situation. Speech is coherent, abstraction fair, computation impaired, language function intact, attention span short. Mood and affect remain somewhat labile. LABORATORY DATA: Reviewed. IMPRESSION: Unchanged from initial note. PLAN: Continue psychotropics mentioned in my initial note. Adjust further as clinically indicated. Reviewed drug interactions. Risk/benefit ratio favors no further change. MAN Chloé FELDMAN MD DR: YUSUF/chely JOB#: [id number] / [id number]
[2017-04-14] MEDS: LEVOTHYROXINE 25 MCG TABLET. PO SCH (06:07)
[2017-04-14] MEDS: ACETAMINOPHEN 325 MG TABLET PO SCH ×3 (06:07→21:01)
[2017-04-14 07:09] VITALS: BP 109/68
[2017-04-14] MEDS: FOLIC ACID 1 MG TABLET PO SCH (09:01)
[2017-04-14] MEDS: CYANOCOBALAMIN (VITAMIN B-12) 1,000 MCG TABLET. PO SCH (09:01)
[2017-04-14] MEDS: DIVALPROEX SODIUM 250 MG TABLET.DR. PO SCH ×3 (09:02→19:30)
[2017-04-14] MEDS: TOPIRAMATE 100 MG TABLET. PO SCH ×2 (09:04→19:31)
[2017-04-14] MEDS: IBUPROFEN 200 MG TABLET PO SCH (09:14)
[2017-04-14 16:03] VITALS: BP 114/71
[2017-04-14] MEDS: ATORVASTATIN CALCIUM 20 MG TABLET PO SCH (19:30)
[2017-04-14] MEDS: ARIPiprazole 10 MG TABLET PO SCH (19:30)
--- NOTE | 2017-04-14 20:05 | DS ---
DATE OF DISCHARGE: 04/13/2017 DISCHARGE SUMMARY/PSYCHIATRIC PROGRESS NOTE This is a late entry on 04/13/2017, covered the elements not covered in my initial note of 04/13/2017. REASON FOR ADMISSION: Please refer to the admission history for details. Briefly, the patient is an 84-year-old male referred to us from home on account of increasing confusion, agitation, aggression, exit seeking, combative. He is extremely psychotic, labile had failed outpatient psychiatric interventions. SIGNIFICANT FINDINGS AND CLINICAL COURSE: Following admission, the patient was seen daily individually by myself, followed medically per Dr. Subramanian/Dr Earl. The patient is extremely confused, restless, anxious, agitated, and aggressive intermittently. He remained in a wheelchair, banging doors at times, running wheelchair over the rest patients. I met with the patient daily individually, followed medically per Dr. Subramanian/Dr. Earl. Adjustments were made in his psychotropics and he seemed to respond gradually to a combination of Remeron 15 mg at bedtime, melatonin 3 mg at bedtime, Zyprexa p.r.n., Celexa 10 mg a day, Seroquel 37.5 mg b.i.d. 50 mg daily, trazodone 50 mg at bedtime p.r.n., may repeat x 1 for insomnia. Prior to discharge, 04/13/2017 I met with him individually. He is in his wheelchair. REVIEW OF SYSTEMS: No CV, , pulmonary, eye, ENT system symptoms on review. Gait unsteady. MENTAL STATUS EXAM: Oriented to himself. Insight, judgment, recent and remote memory, attention, concentration, fund of knowledge poor, consistent with his diagnosis and quite pleasant, smiling. LABORATORY DATA: Reviewed. FINAL DIAGNOSES: Major neurocognitive disorder, Alzheimer, vascular with depression, delusion, behavioral disturbance; anxiety disorder, unspecified; impulse control disorder, unspecified. Rest unchanged. PLAN: Discharge medications, please refer the [facility]. Outpatient psychiatric and medical followup at the care home. Time for discharge day management greater than 30 minutes. MAN Chloé FELDMAN MD DR: YUSUF/chely JOB#: [id number] / [id number]
--- NOTE | 2017-04-14 20:51 | PDOC ---
Exam Brennen Demential Exam: Brennen Note: Please also refer to the separate dictated note~for this date of service dictated separately.~Patient seen individually. Discussed the patient with Nursing staff reviewed the chart.~Reviewed interim history and current functioning. Reviewed vital signs,~Labs/ Radiology~and current medications noted below. Continue current treatment with the changes noted in the dictated addendum note Assessment: Vital Signs: Vital Signs Date Time Temp Pulse Resp B/P (MAP) Pulse Ox O2 Delivery O2 Flow Rate FiO2 04/14/17 16:03 96.8 70 20 114/71 (85) 95 04/13/17 16:14 Room Air I&O Intake and Output 04/15/17 07:00 Intake Total 840 ml Balance 840 ml Intake Oral 840 ml Current Medications: Meds: Current Medications Ceftriaxone Sodium 1 gm/ Sodium Chloride 50 ml @ 100 mls/hr 1X ONCE IV Last administered on 04/07/17 19:30; Start 04/07/17 at 19:30; Stop 04/07/17 at 19:59 ; Status DC Sodium Chloride 50 ml @ As Directed STK-MED ONCE .ROUTE ; Start 04/07/17 at 19: 20; Stop 04/07/17 at 19:21; Status DC Ceftriaxone Sodium (Rocephin) 1 gm STK-MED ONCE IV ; Start 04/07/17 at 19:20; Stop 04/07/17 at 19:21; Status DC Acetaminophen (Tylenol) 650 mg PRN Q6HRS PRN PO PAIN / TEMP; Start 04/07/17 at 22:15; Stop 04/08/17 at 15:31; Status DC Multi-Ingredient Ointment (Analgesic [place]) 1 chencho PRN QID PRN TP MUSCLE PAIN; Start 04/07/17 at 22:15 Al Hydroxide/Mg Hydroxide (Mylanta Plus Xs) 15 ml PRN AFTMEALHC PRN PO DYSPEPSIA; Start 04/07/17 at 22:15 Magnesium Hydroxide (Milk Of Magnesia) 2,400 mg PRN QHS PRN PO CONSTIPATION; Start 04/07/17 at 22:15 Info (FLU VACCINE per PROTOCOL) 1 ea PRN 1X PRN [facility] UNABLE TO RESPOND; Start at 00:30; Status Cancel Aripiprazole (Abilify) 10 mg HS PO Last administered on 04/08/17 20:12; Start 04/08/17 at 21:00; Stop 04/09/17 at 10:17; Status DC Topiramate (Topamax) 150 mg BID PO Last administered on 04/14/17 19:31; Start 04/08/17 at 09:00 Divalproex Sodium (Depakote) 500 mg TID PO Last administered on 04/14/17 19: 30; Start 04/08/17 at 09:00 Lorazepam (Ativan) 1 mg PRN Q2HR PRN PO ANXIETY / AGITATION; Start 04/08/17 at 03:30 Olanzapine (ZyPREXA ZYDIS) 5 mg PRN Q2HR PRN PO Psychosis Last administered on 04/10/17 20:24; Start 04/08/17 at 03:30 Acetaminophen (Tylenol) 650 mg PRN Q6HRS PRN PO PAIN; Start 04/08/17 at 07:00 Folic Acid (Folic Acid) 1 mg DAILY PO Last administered on 04/14/17 09:01; Start 04/08/17 at 09:00 Ibuprofen (Motrin) 200 mg DAILY08 PRN PO INFLAMMATION Last administered on 04/08 08:12; Start 04/08/17 at 08:00; Stop 04/08/17 at 15:35; Status DC Cyanocobalamin (Vitamin B-12) 1,000 mcg DAILY PO Last administered on 09:01; Start 04/08/17 at 09:00 Acetaminophen (Tylenol) 650 mg Q8HRS PO Last administered on 04/14/17 13:49; Start 04/08/17 at 15:45 Fosfomycin Tromethamine (Monurol) 3 gm 1X ONCE PO Last administered on 16:38; Start 04/08/17 at 16:30; Stop 04/08/17 at 16:31; Status DC Ibuprofen (Motrin) 200 mg DAILY08 PO Last administered on 04/14/17 09:14; Start 04/08/17 at 16:30 Levothyroxine Sodium (Synthroid) 25 mcg DAILY06 PO Last administered on 06:07; Start 04/09/17 at 06:00 Atorvastatin Calcium (Lipitor) 20 mg QHS PO Last administered on 04/14/17 19: 30; Start 04/08/17 at 21:00 Trazodone HCl (Desyrel) 50 mg PRN QHS PRN PO INSOMNIA, MAY REPEAT X1 Last administered on 04/13/17 19:56; Start 04/08/17 at 18:30 Aripiprazole (Abilify) 20 mg QHS PO ; Start 04/10/17 at 21:00; Stop 04/10/17 at 21:00; Status DC Vitamin D (Vitamin D3) 50,000 unit WEEKLY PO Last administered on 04/10/17 09: 12; Start 04/10/17 at 09:00 Aripiprazole (Abilify) 30 mg QHS PO Last administered on 04/14/17 19:30; Start 04/10/17 at 21:00 Active Scripts Active Reported Vitamin B12 (Cyanocobalamin (Vitamin B-12)) 5,000 Mcg Tab.rapdis 1,000 Mcg PO DAILY Folic Acid 1 Mg Tablet 1 Mg PO DAILY Ibuprofen 400 Mg Tablet 200 Mg PO DAILY08 Abilify (Aripiprazole) 5 Mg Tablet 10 Mg PO HS Topiramate 100 Mg Tablet 150 Mg PO BID Depakote (Divalproex Sodium) 500 Mg Tablet.dr 500 Mg PO TID Tylenol (Acetaminophen) 325 Mg Tablet 650 Mg PO PRN Q6HRS PRN Diagnosis: Problems: (1) Depression (2) Behavioral problems (3) Anxiety disorder (4) Schizoaffective disorder, chronic condition with acute exacerbation (5) Schizophrenia, disorganized, subchronic with acute exacerbation (6) Bipolar affective, mixed, sev w/ psych VIRGIE FELDMAN MD Apr 14, 2017 20:51
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
[2017-04-15] MEDS: ACETAMINOPHEN 325 MG TABLET PO SCH ×3 (05:42→21:07)
[2017-04-15] MEDS: LEVOTHYROXINE 25 MCG TABLET. PO SCH (05:42)
[2017-04-15 05:49] VITALS: BP 112/71
[2017-04-15] MEDS: DIVALPROEX SODIUM 250 MG TABLET.DR. PO SCH ×2 (08:07→15:24)
[2017-04-15] MEDS: FOLIC ACID 1 MG TABLET PO SCH (08:08)
[2017-04-15] MEDS: IBUPROFEN 200 MG TABLET PO SCH (08:08)
[2017-04-15] MEDS: CYANOCOBALAMIN (VITAMIN B-12) 1,000 MCG TABLET. PO SCH (08:08)
[2017-04-15] MEDS: TOPIRAMATE 100 MG TABLET. PO SCH ×2 (08:08→21:06)
[2017-04-15 09:41] LABS: BASO % 1 % (0-3); EOS % 1 % (0-3); HEMATOCRIT 36.7 % (36.0-47.0); HEMOGLOBIN 12.4 g/dL (12.0-15.5); LYMPH # 1.4 x10^3/uL (1.0-4.8); LYMPH % 27 % (24-48); MEAN CORPUSCULAR HEMOGLOBIN 34 pg (25-35); MEAN CORPUSCULAR HGB CONC 34 g/dL (31-37); MEAN CORPUSCULAR VOLUME 102 fL (79-100); MONO # 0.7 x10^3/uL (0.0-1.1); MONO % 14 % (0-9); NEUT % 58 % (31-73); PLATELET COUNT 173 x10^3/uL (140-400); RED CELL DISTRIBUTION WIDTH 16.6 % (11.5-14.5); WHITE BLOOD COUNT 5.2 x10^3/uL (4.0-11.0)
[2017-04-15 10:04] LABS: ALBUMIN 2.8 g/dL (3.4-5.0); ALBUMIN/GLOBULIN RATIO 0.9 (1.0-1.7); ALK PHOS 36 U/L (46-116); ALT (SGPT) 12 U/L (14-59); ANION GAP 7 (6-14); AST (SGOT) 11 U/L (15-37); BLOOD UREA NITROGEN 20 mg/dL (7-20); BUN/CREATININE RATIO 25 (6-20); CALCIUM 8.5 mg/dL (8.5-10.1); CARBON DIOXIDE 26 mmol/L (21-32); CHLORIDE 108 mmol/L (98-107); CREATININE 0.8 mg/dL (0.6-1.0); GFR 71.3; GLUCOSE 112 mg/dL (70-99); MAGNESIUM 1.9 mg/dL (1.8-2.4); SODIUM 141 mmol/L (136-145); TOTAL BILIRUBIN 0.2 mg/dL (0.2-1.0); TOTAL PROTEIN 5.8 g/dL (6.4-8.2)
[2017-04-15 10:05] LABS: VAL ACID 59 mcg/mL (50-100)
[2017-04-15 16:42] VITALS: BP 98/59
--- NOTE | 2017-04-15 20:34 | PDOC ---
Exam Brennen Demential Exam: Brennen Note: Please also refer to the separate dictated note~for this date of service dictated separately.~Patient seen individually. Discussed the patient with Nursing staff reviewed the chart.~Reviewed interim history and current functioning. Reviewed vital signs,~Labs/ Radiology~and current medications noted below. Continue current treatment with the changes noted in the dictated addendum note Assessment: Vital Signs: Vital Signs Date Time Temp Pulse Resp B/P (MAP) Pulse Ox O2 Delivery O2 Flow Rate FiO2 04/15/17 16:42 97.9 58 16 98/59 (72) 94 04/15/17 05:49 Room Air I&O Intake and Output 04/16/17 07:00 Intake Total 600 ml Balance 600 ml Intake Oral 600 ml Labs: Laboratory Tests Test 04/15/17 09:28 White Blood Count 5.2 x10^3/uL (4.0-11.0) Red Blood Count 3.60 x10^6/uL (3.50-5.40) Hemoglobin 12.4 g/dL (12.0-15.5) Hematocrit 36.7 % (36.0-47.0) Mean Corpuscular Volume 102 fL (79-100) H Mean Corpuscular Hemoglobin 34 pg (25-35) Mean Corpuscular Hemoglobin Concent 34 g/dL (31-37) Red Cell Distribution Width 16.6 % (11.5-14.5) H Platelet Count 173 x10^3/uL (140-400) Neutrophils (%) (Auto) 58 % (31-73) Lymphocytes (%) (Auto) 27 % (24-48) Monocytes (%) (Auto) 14 % (0-9) H Eosinophils (%) (Auto) 1 % (0-3) Basophils (%) (Auto) 1 % (0-3) Neutrophils # (Auto) 3.0 x10^3uL (1.8-7.7) Lymphocytes # (Auto) 1.4 x10^3/uL (1.0-4.8) Monocytes # (Auto) 0.7 x10^3/uL (0.0-1.1) Eosinophils # (Auto) 0.0 x10^3/uL (0.0-0.7) Basophils # (Auto) 0.0 x10^3/uL (0.0-0.2) Sodium Level 141 mmol/L (136-145) Potassium Level 4.0 mmol/L (3.5-5.1) Chloride Level 108 mmol/L (98-107) H Carbon Dioxide Level 26 mmol/L (21-32) Anion Gap 7 (6-14) Blood Urea Nitrogen 20 mg/dL (7-20) Creatinine 0.8 mg/dL (0.6-1.0) Estimated GFR (Cockcroft-Gault) 71.3 BUN/Creatinine Ratio 25 (6-20) H Glucose Level 112 mg/dL (70-99) H Calcium Level 8.5 mg/dL (8.5-10.1) Magnesium Level 1.9 mg/dL (1.8-2.4) Total Bilirubin 0.2 mg/dL (0.2-1.0) Aspartate Amino Transferase (AST) 11 U/L (15-37) L Alanine Aminotransferase (ALT) 12 U/L (14-59) L Alkaline Phosphatase 36 U/L (46-116) L Total Protein 5.8 g/dL (6.4-8.2) L Albumin 2.8 g/dL (3.4-5.0) L Albumin/Globulin Ratio 0.9 (1.0-1.7) L Valproic Acid Level 59 mcg/mL (50-100) Valproic Acid Last Dose Date 04/13/17 Valproic Acid Last Dose Time 2100 Current Medications: Meds: Current Medications Ceftriaxone Sodium 1 gm/ Sodium Chloride 50 ml @ 100 mls/hr 1X ONCE IV Last administered on 04/07/17t 19:30; Start 04/07/17 at 19:30; Stop 04/07/17 at 19:59 ; Status DC Sodium Chloride 50 ml @ As Directed STK-MED ONCE .ROUTE ; Start 04/07/17 at 19: 20; Stop 04/07/17 at 19:21; Status DC Ceftriaxone Sodium (Rocephin) 1 gm STK-MED ONCE IV ; Start 04/07/17 at 19:20; Stop 04/07/17 at 19:21; Status DC Acetaminophen (Tylenol) 650 mg PRN Q6HRS PRN PO PAIN / TEMP; Start 04/07/17 at 22:15; Stop 04/08/17 at 15:31; Status DC Multi-Ingredient Ointment (Analgesic [place]) 1 chencho PRN QID PRN TP MUSCLE PAIN; Start 04/07/17 at 22:15 Al Hydroxide/Mg Hydroxide (Mylanta Plus Xs) 15 ml PRN AFTMEALHC PRN PO DYSPEPSIA; Start 04/07/17 at 22:15 Magnesium Hydroxide (Milk Of Magnesia) 2,400 mg PRN QHS PRN PO CONSTIPATION; Start 04/07/17 at 22:15 Info (FLU VACCINE per PROTOCOL) 1 ea PRN 1X PRN [facility] UNABLE TO RESPOND; Start at 00:30; Status Cancel Aripiprazole (Abilify) 10 mg HS PO Last administered on 04/08/17 20:12; Start 04/08/17 at 21:00; Stop 04/09/17 at 10:17; Status DC Topiramate (Topamax) 150 mg BID PO Last administered on 04/15/17 08:08; Start 04/08/17 at 09:00 Divalproex Sodium (Depakote) 500 mg TID PO Last administered on 04/15/17 15: 24; Start 04/08/17 at 09:00; Stop 04/15/17 at 18:46; Status DC Lorazepam (Ativan) 1 mg PRN Q2HR PRN PO ANXIETY / AGITATION; Start 04/08/17 at 03:30 Olanzapine (ZyPREXA ZYDIS) 5 mg PRN Q2HR PRN PO Psychosis Last administered on 04/10/17 20:24; Start 04/08/17 at 03:30 Acetaminophen (Tylenol) 650 mg PRN Q6HRS PRN PO PAIN; Start 04/08/17 at 07:00 Folic Acid (Folic Acid) 1 mg DAILY PO Last administered on 04/15/17 08:08; Start 04/08/17 at 09:00 Ibuprofen (Motrin) 200 mg DAILY08 PRN PO INFLAMMATION Last administered on 04/08 08:12; Start 04/08/17 at 08:00; Stop 04/08/17 at 15:35; Status DC Cyanocobalamin (Vitamin B-12) 1,000 mcg DAILY PO Last administered on 08:08; Start 04/08/17 at 09:00 Acetaminophen (Tylenol) 650 mg Q8HRS PO Last administered on 04/15/17 15:24; Start 04/08/17 at 15:45 Fosfomycin Tromethamine (Monurol) 3 gm 1X ONCE PO Last administered on 16:38; Start 04/08/17 at 16:30; Stop 04/08/17 at 16:31; Status DC Ibuprofen (Motrin) 200 mg DAILY08 PO Last administered on 04/15/17 08:08; Start 04/08/17 at 16:30 Levothyroxine Sodium (Synthroid) 25 mcg DAILY06 PO Last administered on 05:42; Start 04/09/17 at 06:00 Atorvastatin Calcium (Lipitor) 20 mg QHS PO Last administered on 04/14/17 19: 30; Start 04/08/17 at 21:00 Trazodone HCl (Desyrel) 50 mg PRN QHS PRN PO INSOMNIA, MAY REPEAT X1 Last administered on 04/13/17 19:56; Start 04/08/17 at 18:30 Aripiprazole (Abilify) 20 mg QHS PO ; Start 04/10/17 at 21:00; Stop 04/10/17 at 21:00; Status DC Vitamin D (Vitamin D3) 50,000 unit WEEKLY PO Last administered on 04/10/17 09: 12; Start 04/10/17 at 09:00 Aripiprazole (Abilify) 30 mg QHS PO Last administered on 04/14/17 19:30; Start 04/10/17 at 21:00 Bupropion HCl (Wellbutrin Xl) 150 mg DAILY PO ; Start 04/16/17 at 09:00 Divalproex Sodium (Depakote Er) 1,500 mg QHS PO ; Start 04/15/17 at 21:00 Active Scripts Active Reported Vitamin B12 (Cyanocobalamin (Vitamin B-12)) 5,000 Mcg Tab.rapdis 1,000 Mcg PO DAILY Folic Acid 1 Mg Tablet 1 Mg PO DAILY Ibuprofen 400 Mg Tablet 200 Mg PO DAILY08 Abilify (Aripiprazole) 5 Mg Tablet 10 Mg PO HS Topiramate 100 Mg Tablet 150 Mg PO BID Depakote (Divalproex Sodium) 500 Mg Tablet.dr 500 Mg PO TID Tylenol (Acetaminophen) 325 Mg Tablet 650 Mg PO PRN Q6HRS PRN Diagnosis: Problems: (1) Depression (2) Behavioral problems (3) Anxiety disorder (4) Schizoaffective disorder, chronic condition with acute exacerbation (5) Schizophrenia, disorganized, subchronic with acute exacerbation (6) Bipolar affective, mixed, sev w/ psych VIRGIE FELDMAN MD Apr 15, 2017 20:34
[2017-04-15] MEDS: ARIPiprazole 10 MG TABLET PO SCH (21:06)
[2017-04-15] MEDS: ATORVASTATIN CALCIUM 20 MG TABLET PO SCH (21:06)
[2017-04-15] MEDS: DIVALPROEX ER 500 MG TAB.ER.24H PO SCH (21:10)
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
[2017-04-16] MEDS: ACETAMINOPHEN 325 MG TABLET PO SCH ×3 (05:54→19:49)
[2017-04-16] MEDS: LEVOTHYROXINE 25 MCG TABLET. PO SCH (05:54)
[2017-04-16 06:09] VITALS: BP 114/75
[2017-04-16] MEDS: TOPIRAMATE 100 MG TABLET. PO SCH ×2 (08:26→19:48)
[2017-04-16] MEDS: CYANOCOBALAMIN (VITAMIN B-12) 1,000 MCG TABLET. PO SCH (08:26)
[2017-04-16] MEDS: IBUPROFEN 200 MG TABLET PO SCH (08:26)
[2017-04-16] MEDS: FOLIC ACID 1 MG TABLET PO SCH (08:26)
[2017-04-16] MEDS: buPROPion XL 150 MG TAB.ER.24H PO SCH (08:27)
[2017-04-16 16:31] VITALS: BP 98/54
[2017-04-16 19:27] VITALS: BP 118/71
[2017-04-16] MEDS: DIVALPROEX ER 500 MG TAB.ER.24H PO SCH (19:47)
[2017-04-16] MEDS: ATORVASTATIN CALCIUM 20 MG TABLET PO SCH (19:48)
[2017-04-16] MEDS: ARIPiprazole 10 MG TABLET PO SCH (19:50)
--- NOTE | 2017-04-16 20:41 | PDOC ---
Exam Brennen Demential Exam: Brennen Note: Please also refer to the separate dictated note~for this date of service dictated separately.~Patient seen individually. Discussed the patient with Nursing staff reviewed the chart.~Reviewed interim history and current functioning. Reviewed vital signs,~Labs/ Radiology~and current medications noted below. Continue current treatment with the changes noted in the dictated addendum note Assessment: Vital Signs: Vital Signs Date Time Temp Pulse Resp B/P (MAP) Pulse Ox O2 Delivery O2 Flow Rate FiO2 04/16/17 19:27 81 22 118/71 (87) 93 04/16/17 16:31 98.2 04/15/17 05:49 Room Air I&O Intake and Output 04/17/17 07:00 Intake Total 720 ml Balance 720 ml Intake Oral 720 ml # Voids 1 # Bowel Movements 1 Labs: Laboratory Tests Test 04/16/17 06:20 Magnesium Level 2.0 mg/dL (1.8-2.4) Current Medications: Meds: Current Medications Ceftriaxone Sodium 1 gm/ Sodium Chloride 50 ml @ 100 mls/hr 1X ONCE IV Last administered on 04/07/17t 19:30; Start 04/07/17 at 19:30; Stop 04/07/17 at 19:59 ; Status DC Sodium Chloride 50 ml @ As Directed STK-MED ONCE .ROUTE ; Start 04/07/17 at 19: 20; Stop 04/07/17 at 19:21; Status DC Ceftriaxone Sodium (Rocephin) 1 gm STK-MED ONCE IV ; Start 04/07/17 at 19:20; Stop 04/07/17 at 19:21; Status DC Acetaminophen (Tylenol) 650 mg PRN Q6HRS PRN PO PAIN / TEMP; Start 04/07/17 at 22:15; Stop 04/08/17 at 15:31; Status DC Multi-Ingredient Ointment (Analgesic [place]) 1 chencho PRN QID PRN TP MUSCLE PAIN; Start 04/07/17 at 22:15 Al Hydroxide/Mg Hydroxide (Mylanta Plus Xs) 15 ml PRN AFTMEALHC PRN PO DYSPEPSIA; Start 04/07/17 at 22:15 Magnesium Hydroxide (Milk Of Magnesia) 2,400 mg PRN QHS PRN PO CONSTIPATION; Start 04/07/17 at 22:15 Info (FLU VACCINE per PROTOCOL) 1 ea PRN 1X PRN [facility] UNABLE TO RESPOND; Start at 00:30; Status Cancel Aripiprazole (Abilify) 10 mg HS PO Last administered on 04/08/17 20:12; Start 04/08/17 at 21:00; Stop 04/09/17 at 10:17; Status DC Topiramate (Topamax) 150 mg BID PO Last administered on 04/16/17 19:48; Start 04/08/17 at 09:00 Divalproex Sodium (Depakote) 500 mg TID PO Last administered on 04/15/17 15: 24; Start 04/08/17 at 09:00; Stop 04/15/17 at 18:46; Status DC Lorazepam (Ativan) 1 mg PRN Q2HR PRN PO ANXIETY / AGITATION; Start 04/08/17 at 03:30 Olanzapine (ZyPREXA ZYDIS) 5 mg PRN Q2HR PRN PO Psychosis Last administered on 04/10/17 20:24; Start 04/08/17 at 03:30 Acetaminophen (Tylenol) 650 mg PRN Q6HRS PRN PO PAIN; Start 04/08/17 at 07:00 Folic Acid (Folic Acid) 1 mg DAILY PO Last administered on 04/16/17 08:26; Start 04/08/17 at 09:00 Ibuprofen (Motrin) 200 mg DAILY08 PRN PO INFLAMMATION Last administered on 04/08 08:12; Start 04/08/17 at 08:00; Stop 04/08/17 at 15:35; Status DC Cyanocobalamin (Vitamin B-12) 1,000 mcg DAILY PO Last administered on 08:26; Start 04/08/17 at 09:00 Acetaminophen (Tylenol) 650 mg Q8HRS PO Last administered on 04/16/17 19:49; Start 04/08/17 at 15:45 Fosfomycin Tromethamine (Monurol) 3 gm 1X ONCE PO Last administered on 16:38; Start 04/08/17 at 16:30; Stop 04/08/17 at 16:31; Status DC Ibuprofen (Motrin) 200 mg DAILY08 PO Last administered on 04/16/17 08:26; Start 04/08/17 at 16:30 Levothyroxine Sodium (Synthroid) 25 mcg DAILY06 PO Last administered on 05:54; Start 04/09/17 at 06:00 Atorvastatin Calcium (Lipitor) 20 mg QHS PO Last administered on 04/16/17 19: 48; Start 04/08/17 at 21:00 Trazodone HCl (Desyrel) 50 mg PRN QHS PRN PO INSOMNIA, MAY REPEAT X1 Last administered on 04/13/17 19:56; Start 04/08/17 at 18:30 Aripiprazole (Abilify) 20 mg QHS PO ; Start 04/10/17 at 21:00; Stop 04/10/17 at 21:00; Status DC Vitamin D (Vitamin D3) 50,000 unit WEEKLY PO Last administered on 04/10/17 09: 12; Start 04/10/17 at 09:00 Aripiprazole (Abilify) 30 mg QHS PO Last administered on 04/15/17 21:06; Start 04/10/17 at 21:00; Stop 04/16/17 at 11:10; Status DC Bupropion HCl (Wellbutrin Xl) 150 mg DAILY PO Last administered on 04/16/17 08:27; Start 04/16/17 at 09:00 Divalproex Sodium (Depakote Er) 1,500 mg QHS PO Last administered on 19:47; Start 04/15/17 at 21:00 Aripiprazole (Abilify) 35 mg QHS PO Last administered on 04/16/17 19:50; Start 04/16/17 at 21:00 Active Scripts Active Reported Vitamin B12 (Cyanocobalamin (Vitamin B-12)) 5,000 Mcg Tab.rapdis 1,000 Mcg PO DAILY Folic Acid 1 Mg Tablet 1 Mg PO DAILY Ibuprofen 400 Mg Tablet 200 Mg PO DAILY08 Abilify (Aripiprazole) 5 Mg Tablet 10 Mg PO HS Topiramate 100 Mg Tablet 150 Mg PO BID Depakote (Divalproex Sodium) 500 Mg Tablet.dr 500 Mg PO TID Tylenol (Acetaminophen) 325 Mg Tablet 650 Mg PO PRN Q6HRS PRN Diagnosis: Problems: (1) Depression (2) Behavioral problems (3) Anxiety disorder (4) Schizoaffective disorder, chronic condition with acute exacerbation (5) Schizophrenia, disorganized, subchronic with acute exacerbation (6) Bipolar affective, mixed, sev w/ psych VIRGIE FELDMAN MD Apr 16, 2017 20:41
[2017-04-17] MEDS: ACETAMINOPHEN 325 MG TABLET PO SCH ×3 (06:06→19:57)
[2017-04-17] MEDS: LEVOTHYROXINE 25 MCG TABLET. PO SCH (06:06)
[2017-04-17 06:22] VITALS: BP 105/69
[2017-04-17] MEDS: CHOLECALCIFEROL (VITAMIN D3) 50,000 UNIT CAPSULE PO SCH (08:05)
[2017-04-17] MEDS: CYANOCOBALAMIN (VITAMIN B-12) 1,000 MCG TABLET. PO SCH (08:05)
[2017-04-17] MEDS: buPROPion XL 150 MG TAB.ER.24H PO SCH (08:05)
[2017-04-17] MEDS: FOLIC ACID 1 MG TABLET PO SCH (08:06)
[2017-04-17] MEDS: TOPIRAMATE 100 MG TABLET. PO SCH ×2 (08:06→19:56)
[2017-04-17] MEDS: IBUPROFEN 200 MG TABLET PO SCH (08:06)
[2017-04-17 16:40] VITALS: BP 94/59
[2017-04-17] MEDS: DIVALPROEX ER 500 MG TAB.ER.24H PO SCH (19:55)
[2017-04-17] MEDS: ARIPiprazole 10 MG TABLET PO SCH (19:55)
[2017-04-17] MEDS: ATORVASTATIN CALCIUM 20 MG TABLET PO SCH (19:56)
--- NOTE | 2017-04-17 20:49 | PDOC ---
Exam Brennen Demential Exam: Brennen Note: Please also refer to the separate dictated note~for this date of service dictated separately.~Patient seen individually. Discussed the patient with Nursing staff reviewed the chart.~Reviewed interim history and current functioning. Reviewed vital signs,~Labs/ Radiology~and current medications noted below. Continue current treatment with the changes noted in the dictated addendum note Assessment: Vital Signs: Vital Signs Date Time Temp Pulse Resp B/P (MAP) Pulse Ox O2 Delivery O2 Flow Rate FiO2 04/17/17 16:40 98.9 70 20 94/59 (71) 96 04/15/17 05:49 Room Air I&O Intake and Output 04/18/17 07:00 Intake Total 480 ml Balance 480 ml Intake Oral 480 ml # Voids 1 # Bowel Movements 1 Current Medications: Meds: Current Medications Ceftriaxone Sodium 1 gm/ Sodium Chloride 50 ml @ 100 mls/hr 1X ONCE IV Last administered on 04/07/17t 19:30; Start 04/07/17 at 19:30; Stop 04/07/17 at 19:59 ; Status DC Sodium Chloride 50 ml @ As Directed STK-MED ONCE .ROUTE ; Start 04/07/17 at 19: 20; Stop 04/07/17 at 19:21; Status DC Ceftriaxone Sodium (Rocephin) 1 gm STK-MED ONCE IV ; Start 04/07/17 at 19:20; Stop 04/07/17 at 19:21; Status DC Acetaminophen (Tylenol) 650 mg PRN Q6HRS PRN PO PAIN / TEMP; Start 04/07/17 at 22:15; Stop 04/08/17 at 15:31; Status DC Multi-Ingredient Ointment (Analgesic [place]) 1 chencho PRN QID PRN TP MUSCLE PAIN; Start 04/07/17 at 22:15 Al Hydroxide/Mg Hydroxide (Mylanta Plus Xs) 15 ml PRN AFTMEALHC PRN PO DYSPEPSIA; Start 04/07/17 at 22:15 Magnesium Hydroxide (Milk Of Magnesia) 2,400 mg PRN QHS PRN PO CONSTIPATION; Start 04/07/17 at 22:15 Info (FLU VACCINE per PROTOCOL) 1 ea PRN 1X PRN [facility] UNABLE TO RESPOND; Start at 00:30; Status Cancel Aripiprazole (Abilify) 10 mg HS PO Last administered on 04/08/17 20:12; Start 04/08/17 at 21:00; Stop 04/09/17 at 10:17; Status DC Topiramate (Topamax) 150 mg BID PO Last administered on 04/17/17 19:56; Start 04/08/17 at 09:00 Divalproex Sodium (Depakote) 500 mg TID PO Last administered on 04/15/17 15: 24; Start 04/08/17 at 09:00; Stop 04/15/17 at 18:46; Status DC Lorazepam (Ativan) 1 mg PRN Q2HR PRN PO ANXIETY / AGITATION; Start 04/08/17 at 03:30 Olanzapine (ZyPREXA ZYDIS) 5 mg PRN Q2HR PRN PO Psychosis Last administered on 04/10/17 20:24; Start 04/08/17 at 03:30 Acetaminophen (Tylenol) 650 mg PRN Q6HRS PRN PO PAIN; Start 04/08/17 at 07:00 Folic Acid (Folic Acid) 1 mg DAILY PO Last administered on 04/17/17 08:06; Start 04/08/17 at 09:00 Ibuprofen (Motrin) 200 mg DAILY08 PRN PO INFLAMMATION Last administered on 04/08 08:12; Start 04/08/17 at 08:00; Stop 04/08/17 at 15:35; Status DC Cyanocobalamin (Vitamin B-12) 1,000 mcg DAILY PO Last administered on 08:05; Start 04/08/17 at 09:00 Acetaminophen (Tylenol) 650 mg Q8HRS PO Last administered on 04/17/17 19:57; Start 04/08/17 at 15:45 Fosfomycin Tromethamine (Monurol) 3 gm 1X ONCE PO Last administered on 16:38; Start 04/08/17 at 16:30; Stop 04/08/17 at 16:31; Status DC Ibuprofen (Motrin) 200 mg DAILY08 PO Last administered on 04/17/17 08:06; Start 04/08/17 at 16:30 Levothyroxine Sodium (Synthroid) 25 mcg DAILY06 PO Last administered on 06:06; Start 04/09/17 at 06:00 Atorvastatin Calcium (Lipitor) 20 mg QHS PO Last administered on 04/17/17 19: 56; Start 04/08/17 at 21:00 Trazodone HCl (Desyrel) 50 mg PRN QHS PRN PO INSOMNIA, MAY REPEAT X1 Last administered on 04/13/17 19:56; Start 04/08/17 at 18:30 Aripiprazole (Abilify) 20 mg QHS PO ; Start 04/10/17 at 21:00; Stop 04/10/17 at 21:00; Status DC Vitamin D (Vitamin D3) 50,000 unit WEEKLY PO Last administered on 04/17/17 08 :05; Start 04/10/17 at 09:00 Aripiprazole (Abilify) 30 mg QHS PO Last administered on 04/15/17 21:06; Start 04/10/17 at 21:00; Stop 04/16/17 at 11:10; Status DC Bupropion HCl (Wellbutrin Xl) 150 mg DAILY PO Last administered on 04/17/17 08:05; Start 04/16/17 at 09:00 Divalproex Sodium (Depakote Er) 1,500 mg QHS PO Last administered on 19:55; Start 04/15/17 at 21:00 Aripiprazole (Abilify) 35 mg QHS PO Last administered on 04/17/17 19:55; Start 04/16/17 at 21:00 Active Scripts Active Reported Vitamin B12 (Cyanocobalamin (Vitamin B-12)) 5,000 Mcg Tab.rapdis 1,000 Mcg PO DAILY Folic Acid 1 Mg Tablet 1 Mg PO DAILY Ibuprofen 400 Mg Tablet 200 Mg PO DAILY08 Abilify (Aripiprazole) 5 Mg Tablet 10 Mg PO HS Topiramate 100 Mg Tablet 150 Mg PO BID Depakote (Divalproex Sodium) 500 Mg Tablet.dr 500 Mg PO TID Tylenol (Acetaminophen) 325 Mg Tablet 650 Mg PO PRN Q6HRS PRN Diagnosis: Problems: (1) Depression (2) Behavioral problems (3) Anxiety disorder (4) Schizoaffective disorder, chronic condition with acute exacerbation (5) Schizophrenia, disorganized, subchronic with acute exacerbation (6) Bipolar affective, mixed, sev w/ psych FRANCIAVIRGIE MAURER MD Apr 17, 2017 20:49
--- NOTE | 2017-04-18 00:01 | PN ---
DATE: 04/15/2017 This late entry for 04/15/2017 covers elements not covered in my initial note of 04/15/2017. SUBJECTIVE: I met with the patient in the evening of 04/15/2017. The patient has been withdrawn, as I met with her in her room. She was lying in bed, face covered with her covers, somewhat repetitive, obsessive, but despite this, showing some improvement. We will change the Depakote 500 mg t.i.d. to Depakote ER 1500 mg at bedtime. Follow with labs level. Valproic acid level, so far is therapeutic at 57. She also appears depressed, withdrawn with poor energy. Appetite is fair. Screaming is less, complains of intermittent migraine headaches for which she is taking Topamax. Neurology consult with Dr. nKowles has been requested. REVIEW OF SYSTEMS: No CV, , pulmonary, eye, ENT system symptoms on review. She has vague somatic symptoms. MENTAL STATUS EXAM: Oriented to herself and situation. Speech coherent, repetitive, abstraction fair, computation impaired, language function intact, attention span short. Mood and affect remain somewhat anxious, labile, less psychotic. LABORATORY DATA: Reviewed. IMPRESSION: Unchanged from initial note. PLAN: Start Wellbutrin-XL 150 mg a day in the morning as an anti-depressant, change the Depakote as above, Neurology consult, maintain Abilify 30 mg a day. Rest of the psychotropics unchanged. Reviewed drug interactions. Risk/benefit ratio favors no further change. VIRGIE FELDMAN MD DR: YUSUF/chely JOB#: [id number] / [id number]
--- NOTE | 2017-04-18 04:01 | PN ---
DATE: 04/16/2017 PSYCHIATRIC PROGRESS NOTE This late entry 04/16/2017 covers elements not covered in my initial note of 04/16/2017. SUBJECTIVE: I met with the patient the evening of 04/16/2017 and staffed at the treatment team meeting morning of 04/16/2017. The patient continues to repeat phrases with that she hears, is withdrawn, somewhat depressed, still psychotic; but better than before. REVIEW OF SYSTEMS: Has vague somatic symptoms. No CV, , pulmonary, eye, ENT system symptoms on review. MENTAL STATUS EXAM: Oriented to herself and situation. Speech is coherent, repetitive, abstraction fair, computation impaired, language function intact, attention span short. Mood and affect: Lability persists, but improved. LABORATORIES: Reviewed. IMPRESSION: Unchanged from initial note. PLAN: Increase Abilify from 30 mg a day to 35 mg a day, start Wellbutrin-XL 150 mg in the morning to help with the mood symptoms, help with the withdrawn, apathetic behaviors during the day. Maintain the rest of the psychotropics unchanged including Depakote, trazodone, Topamax, Ativan, and Zyprexa p.r.n. Valproic acid level therapeutic at 59. Review drug interactions, risk/benefit ratio favors no further change. VIRGIE FELDMAN MD DR: YUSUF/chely JOB#: [id number] / [id number]
[2017-04-18] MEDS: LEVOTHYROXINE 25 MCG TABLET. PO SCH (05:33)
[2017-04-18] MEDS: ACETAMINOPHEN 325 MG TABLET PO SCH ×3 (05:33→20:04)
[2017-04-18 06:32] VITALS: BP 102/61
[2017-04-18 06:46] LABS: BASO % 1 % (0-3); EOS % 1 % (0-3); HEMATOCRIT 35.4 % (36.0-47.0); LYMPH # 1.6 x10^3/uL (1.0-4.8); LYMPH % 26 % (24-48); MEAN CORPUSCULAR HEMOGLOBIN 35 pg (25-35); MEAN CORPUSCULAR HGB CONC 34 g/dL (31-37); MEAN CORPUSCULAR VOLUME 102 fL (79-100); MONO # 0.9 x10^3/uL (0.0-1.1); MONO % 15 % (0-9); NEUT # 3.5 x10^3uL (1.8-7.7); NEUT % 57 % (31-73); PLATELET COUNT 151 x10^3/uL (140-400); RED BLOOD COUNT 3.48 x10^6/uL (3.50-5.40); WHITE BLOOD COUNT 6.1 x10^3/uL (4.0-11.0)
[2017-04-18 06:48] LABS: ALBUMIN 2.8 g/dL (3.4-5.0); ALBUMIN/GLOBULIN RATIO 0.8 (1.0-1.7); ALK PHOS 39 U/L (46-116); ALT (SGPT) 12 U/L (14-59); ANION GAP 10 (6-14); BLOOD UREA NITROGEN 26 mg/dL (7-20); BUN/CREATININE RATIO 37 (6-20); CALCIUM 8.5 mg/dL (8.5-10.1); CARBON DIOXIDE 24 mmol/L (21-32); CHLORIDE 107 mmol/L (98-107); CREATININE 0.7 mg/dL (0.6-1.0); GFR 83.2; GLUCOSE 96 mg/dL (70-99); POTASSIUM 4.2 mmol/L (3.5-5.1); SODIUM 141 mmol/L (136-145); TOTAL BILIRUBIN 0.3 mg/dL (0.2-1.0); TOTAL PROTEIN 6.1 g/dL (6.4-8.2); VAL ACID 73 mcg/mL (50-100)
[2017-04-18 07:29] LABS: AST (SGOT) 10 U/L (15-37)
[2017-04-18] MEDS: IBUPROFEN 200 MG TABLET PO SCH (08:29)
[2017-04-18] MEDS: FOLIC ACID 1 MG TABLET PO SCH (08:30)
[2017-04-18] MEDS: CYANOCOBALAMIN (VITAMIN B-12) 1,000 MCG TABLET. PO SCH (08:30)
[2017-04-18] MEDS: buPROPion XL 150 MG TAB.ER.24H PO SCH (08:30)
[2017-04-18] MEDS: TOPIRAMATE 100 MG TABLET. PO SCH ×2 (08:30→20:04)
[2017-04-18 16:15] VITALS: BP 101/64
[2017-04-18] MEDS: ATORVASTATIN CALCIUM 20 MG TABLET PO SCH (20:04)
[2017-04-18] MEDS: DIVALPROEX ER 500 MG TAB.ER.24H PO SCH (20:05)
[2017-04-18] MEDS: ARIPiprazole 10 MG TABLET PO SCH (20:06)
--- NOTE | 2017-04-18 21:53 | PDOC ---
Exam Brennen Demential Exam: Brennen Note: Please also refer to the separate dictated note~for this date of service dictated separately.~Patient seen individually. Discussed the patient with Nursing staff reviewed the chart.~Reviewed interim history and current functioning. Reviewed vital signs,~Labs/ Radiology~and current medications noted below. Continue current treatment with the changes noted in the dictated addendum note Assessment: Vital Signs: Vital Signs Date Time Temp Pulse Resp B/P (MAP) Pulse Ox O2 Delivery O2 Flow Rate FiO2 04/18/17 16:15 98.4 73 18 101/64 (76) 95 Room Air I&O Intake and Output 04/19/17 07:00 Intake Total 480 ml Balance 480 ml Intake Oral 480 ml Labs: Laboratory Tests Test 04/18/17 06:18 White Blood Count 6.1 x10^3/uL (4.0-11.0) Red Blood Count 3.48 x10^6/uL (3.50-5.40) L Hemoglobin 12.0 g/dL (12.0-15.5) Hematocrit 35.4 % (36.0-47.0) L Mean Corpuscular Volume 102 fL (79-100) H Mean Corpuscular Hemoglobin 35 pg (25-35) Mean Corpuscular Hemoglobin Concent 34 g/dL (31-37) Red Cell Distribution Width 17.0 % (11.5-14.5) H Platelet Count 151 x10^3/uL (140-400) Neutrophils (%) (Auto) 57 % (31-73) Lymphocytes (%) (Auto) 26 % (24-48) Monocytes (%) (Auto) 15 % (0-9) H Eosinophils (%) (Auto) 1 % (0-3) Basophils (%) (Auto) 1 % (0-3) Neutrophils # (Auto) 3.5 x10^3uL (1.8-7.7) Lymphocytes # (Auto) 1.6 x10^3/uL (1.0-4.8) Monocytes # (Auto) 0.9 x10^3/uL (0.0-1.1) Eosinophils # (Auto) 0.0 x10^3/uL (0.0-0.7) Basophils # (Auto) 0.0 x10^3/uL (0.0-0.2) Sodium Level 141 mmol/L (136-145) Potassium Level 4.2 mmol/L (3.5-5.1) Chloride Level 107 mmol/L (98-107) Carbon Dioxide Level 24 mmol/L (21-32) Anion Gap 10 (6-14) Blood Urea Nitrogen 26 mg/dL (7-20) H Creatinine 0.7 mg/dL (0.6-1.0) Estimated GFR (Cockcroft-Gault) 83.2 BUN/Creatinine Ratio 37 (6-20) H Glucose Level 96 mg/dL (70-99) Calcium Level 8.5 mg/dL (8.5-10.1) Total Bilirubin 0.3 mg/dL (0.2-1.0) Aspartate Amino Transferase (AST) 10 U/L (15-37) L Alanine Aminotransferase (ALT) 12 U/L (14-59) L Alkaline Phosphatase 39 U/L (46-116) L Total Protein 6.1 g/dL (6.4-8.2) L Albumin 2.8 g/dL (3.4-5.0) L Albumin/Globulin Ratio 0.8 (1.0-1.7) L Valproic Acid Level 73 mcg/mL (50-100) Valproic Acid Last Dose Date apr 21 Valproic Acid Last Dose Time 2100 Current Medications: Meds: Current Medications Ceftriaxone Sodium 1 gm/ Sodium Chloride 50 ml @ 100 mls/hr 1X ONCE IV Last administered on 04/07/17t 19:30; Start 04/07/17 at 19:30; Stop 04/07/17 at 19:59 ; Status DC Sodium Chloride 50 ml @ As Directed STK-MED ONCE .ROUTE ; Start 04/07/17 at 19: 20; Stop 04/07/17 at 19:21; Status DC Ceftriaxone Sodium (Rocephin) 1 gm STK-MED ONCE IV ; Start 04/07/17 at 19:20; Stop 04/07/17 at 19:21; Status DC Acetaminophen (Tylenol) 650 mg PRN Q6HRS PRN PO PAIN / TEMP; Start 04/07/17 at 22:15; Stop 04/08/17 at 15:31; Status DC Multi-Ingredient Ointment (Analgesic [place]) 1 chencho PRN QID PRN TP MUSCLE PAIN; Start 04/07/17 at 22:15 Al Hydroxide/Mg Hydroxide (Mylanta Plus Xs) 15 ml PRN AFTMEALHC PRN PO DYSPEPSIA; Start 04/07/17 at 22:15 Magnesium Hydroxide (Milk Of Magnesia) 2,400 mg PRN QHS PRN PO CONSTIPATION; Start 04/07/17 at 22:15 Info (FLU VACCINE per PROTOCOL) 1 ea PRN 1X PRN [facility] UNABLE TO RESPOND; Start at 00:30; Status Cancel Aripiprazole (Abilify) 10 mg HS PO Last administered on 04/08/17 20:12; Start 04/08/17 at 21:00; Stop 04/09/17 at 10:17; Status DC Topiramate (Topamax) 150 mg BID PO Last administered on 04/18/17 20:04; Start 04/08/17 at 09:00 Divalproex Sodium (Depakote) 500 mg TID PO Last administered on 04/15/17 15: 24; Start 04/08/17 at 09:00; Stop 04/15/17 at 18:46; Status DC Lorazepam (Ativan) 1 mg PRN Q2HR PRN PO ANXIETY / AGITATION; Start 04/08/17 at 03:30 Olanzapine (ZyPREXA ZYDIS) 5 mg PRN Q2HR PRN PO Psychosis Last administered on 04/10/17 20:24; Start 04/08/17 at 03:30 Acetaminophen (Tylenol) 650 mg PRN Q6HRS PRN PO PAIN; Start 04/08/17 at 07:00 Folic Acid (Folic Acid) 1 mg DAILY PO Last administered on 04/18/17 08:30; Start 04/08/17 at 09:00 Ibuprofen (Motrin) 200 mg DAILY08 PRN PO INFLAMMATION Last administered on 04/08 08:12; Start 04/08/17 at 08:00; Stop 04/08/17 at 15:35; Status DC Cyanocobalamin (Vitamin B-12) 1,000 mcg DAILY PO Last administered on 08:30; Start 04/08/17 at 09:00 Acetaminophen (Tylenol) 650 mg Q8HRS PO Last administered on 04/18/17 20:04; Start 04/08/17 at 15:45 Fosfomycin Tromethamine (Monurol) 3 gm 1X ONCE PO Last administered on 16:38; Start 04/08/17 at 16:30; Stop 04/08/17 at 16:31; Status DC Ibuprofen (Motrin) 200 mg DAILY08 PO Last administered on 04/18/17 08:29; Start 04/08/17 at 16:30 Levothyroxine Sodium (Synthroid) 25 mcg DAILY06 PO Last administered on 05:33; Start 04/09/17 at 06:00 Atorvastatin Calcium (Lipitor) 20 mg QHS PO Last administered on 04/18/17 20: 04; Start 04/08/17 at 21:00 Trazodone HCl (Desyrel) 50 mg PRN QHS PRN PO INSOMNIA, MAY REPEAT X1 Last administered on 04/13/17 19:56; Start 04/08/17 at 18:30 Aripiprazole (Abilify) 20 mg QHS PO ; Start 04/10/17 at 21:00; Stop 04/10/17 at 21:00; Status DC Vitamin D (Vitamin D3) 50,000 unit WEEKLY PO Last administered on 04/17/17 08 :05; Start 04/10/17 at 09:00 Aripiprazole (Abilify) 30 mg QHS PO Last administered on 04/15/17 21:06; Start 04/10/17 at 21:00; Stop 04/16/17 at 11:10; Status DC Bupropion HCl (Wellbutrin Xl) 150 mg DAILY PO Last administered on 04/18/17 08:30; Start 04/16/17 at 09:00 Divalproex Sodium (Depakote Er) 1,500 mg QHS PO Last administered on 20:05; Start 04/15/17 at 21:00 Aripiprazole (Abilify) 35 mg QHS PO Last administered on 04/18/17 20:06; Start 04/16/17 at 21:00 Active Scripts Active Reported Vitamin B12 (Cyanocobalamin (Vitamin B-12)) 5,000 Mcg Tab.rapdis 1,000 Mcg PO DAILY Folic Acid 1 Mg Tablet 1 Mg PO DAILY Ibuprofen 400 Mg Tablet 200 Mg PO DAILY08 Abilify (Aripiprazole) 5 Mg Tablet 10 Mg PO HS Topiramate 100 Mg Tablet 150 Mg PO BID Depakote (Divalproex Sodium) 500 Mg Tablet.dr 500 Mg PO TID Tylenol (Acetaminophen) 325 Mg Tablet 650 Mg PO PRN Q6HRS PRN Diagnosis: Problems: (1) Depression (2) Behavioral problems (3) Anxiety disorder (4) Schizoaffective disorder, chronic condition with acute exacerbation (5) Schizophrenia, disorganized, subchronic with acute exacerbation (6) Bipolar affective, mixed, sev w/ psych VIRGIE FELDMAN MD Apr 18, 2017 21:53
--- NOTE | 2017-04-19 01:52 | PN ---
DATE: 04/17/2017 This late entry 04/17/2017 covers elements not covered in my initial note of 04/17/2017. SUBJECTIVE: The patient continues to repeat phrases as I met with her in her room. She continues to say "I had a stroke. My clothes are wet. I have chest pain." She slept 5-3/4 hours previous evening. Medically, there is nothing acute and much of the above is her somatic preoccupation. REVIEW OF SYSTEMS: Positive for some tiredness. No CV, , pulmonary, eye, ENT system symptoms on review other than the vague somatic symptoms noted above. MENTAL STATUS EXAM: Oriented to herself and situation. Speech is coherent, repetitive, loud at times. Abstraction fair, computation impaired, language function intact, attention span short. Mood and affect remain somewhat labile. LABORATORY DATA: Unchanged from initial note. PLAN: Continue current psychotropics. Valproic acid level on 04/18/2017 will be completed together with CBC, CMP. At the time of this dictation level on 04/18/2017 is 73, therapeutic. Reviewed drug interactions, risk/benefit ratio favors no further change. Wellbutrin-XL was added 150 mg a day. We will maintain this. VIRGIE FELDMAN MD DR: YUSUF/chely JOB#: [id number] / [id number]
[2017-04-19] MEDS: ACETAMINOPHEN 325 MG TABLET PO SCH ×3 (05:00→19:36)
[2017-04-19] MEDS: LEVOTHYROXINE 25 MCG TABLET. PO SCH (05:00)
[2017-04-19 06:15] VITALS: BP 102/54
[2017-04-19] MEDS: CYANOCOBALAMIN (VITAMIN B-12) 1,000 MCG TABLET. PO SCH (08:39)
[2017-04-19] MEDS: FOLIC ACID 1 MG TABLET PO SCH (08:40)
[2017-04-19] MEDS: IBUPROFEN 200 MG TABLET PO SCH (08:40)
[2017-04-19] MEDS: buPROPion XL 150 MG TAB.ER.24H PO SCH (08:40)
[2017-04-19] MEDS: TOPIRAMATE 100 MG TABLET. PO SCH ×2 (08:40→19:36)
--- NOTE | 2017-04-19 09:52 | PN ---
DATE: 04/18/2017 PSYCHIATRIC PROGRESS NOTE This late entry 04/18/2017 covers elements not covered in my initial note of 04/18/2017. SUBJECTIVE: Met with the patient evening of 04/18/2017. The patient slept 5:45 previous evening. Her daughter and granddaughter visited at lunchtime. The patient able to process but is still repeating phrases. Psychotic symptoms, overall better. REVIEW OF SYSTEMS: No CV, , pulmonary, eye, ENT system symptoms on review. MENTAL STATUS EXAM: Oriented to herself and situation. Speech as noted. Abstraction fair, computation impaired, language function intact. Mood and affect somewhat labile. LABORATORY DATA: Reviewed. IMPRESSION: Unchanged from initial note. PLAN: Valproic acid level therapeutic at 73. Continue Depakote at current dosage, Topamax, Abilify, Wellbutrin, trazodone, along with Ativan p.r.n., Zyprexa p.r.n. Reviewed drug interactions, risk/benefit ratio, favors no further change. VIRGIE FELDMAN MD DR: YUSUF/chely JOB#: [id number] / [id number]
[2017-04-19 16:20] VITALS: BP 106/68
[2017-04-19] MEDS: ARIPiprazole 10 MG TABLET PO SCH (19:34)
[2017-04-19] MEDS: DIVALPROEX ER 500 MG TAB.ER.24H PO SCH (19:35)
[2017-04-19] MEDS: ATORVASTATIN CALCIUM 20 MG TABLET PO SCH (19:36)
--- NOTE | 2017-04-19 20:53 | PDOC ---
Exam Brennen Demential Exam: Brennen Note: Please also refer to the separate dictated note~for this date of service dictated separately.~Patient seen individually. Discussed the patient with Nursing staff reviewed the chart.~Reviewed interim history and current functioning. Reviewed vital signs,~Labs/ Radiology~and current medications noted below. Continue current treatment with the changes noted in the dictated addendum note Assessment: Vital Signs: Vital Signs Date Time Temp Pulse Resp B/P (MAP) Pulse Ox O2 Delivery O2 Flow Rate FiO2 04/19/17 16:20 98.0 61 20 106/68 (81) 95 Room Air I&O Intake and Output 04/20/17 07:00 Intake Total 940 ml Balance 940 ml Intake Oral 940 ml Current Medications: Meds: Current Medications Ceftriaxone Sodium 1 gm/ Sodium Chloride 50 ml @ 100 mls/hr 1X ONCE IV Last administered on 04/07/17 19:30; Start 04/07/17 at 19:30; Stop 04/07/17 at 19:59 ; Status DC Sodium Chloride 50 ml @ As Directed STK-MED ONCE .ROUTE ; Start 04/07/17 at 19: 20; Stop 04/07/17 at 19:21; Status DC Ceftriaxone Sodium (Rocephin) 1 gm STK-MED ONCE IV ; Start 04/07/17 at 19:20; Stop 04/07/17 at 19:21; Status DC Acetaminophen (Tylenol) 650 mg PRN Q6HRS PRN PO PAIN / TEMP; Start 04/07/17 at 22:15; Stop 04/08/17 at 15:31; Status DC Multi-Ingredient Ointment (Analgesic [place]) 1 chencho PRN QID PRN TP MUSCLE PAIN; Start 04/07/17 at 22:15 Al Hydroxide/Mg Hydroxide (Mylanta Plus Xs) 15 ml PRN AFTMEALHC PRN PO DYSPEPSIA; Start 04/07/17 at 22:15 Magnesium Hydroxide (Milk Of Magnesia) 2,400 mg PRN QHS PRN PO CONSTIPATION; Start 04/07/17 at 22:15 Info (FLU VACCINE per PROTOCOL) 1 ea PRN 1X PRN [facility] UNABLE TO RESPOND; Start at 00:30; Status Cancel Aripiprazole (Abilify) 10 mg HS PO Last administered on 04/08/17 20:12; Start 04/08/17 at 21:00; Stop 04/09/17 at 10:17; Status DC Topiramate (Topamax) 150 mg BID PO Last administered on 04/19/17 19:36; Start 04/08/17 at 09:00 Divalproex Sodium (Depakote) 500 mg TID PO Last administered on 04/15/17 15: 24; Start 04/08/17 at 09:00; Stop 04/15/17 at 18:46; Status DC Lorazepam (Ativan) 1 mg PRN Q2HR PRN PO ANXIETY / AGITATION; Start 04/08/17 at 03:30 Olanzapine (ZyPREXA ZYDIS) 5 mg PRN Q2HR PRN PO Psychosis Last administered on 04/10/17 20:24; Start 04/08/17 at 03:30 Acetaminophen (Tylenol) 650 mg PRN Q6HRS PRN PO PAIN; Start 04/08/17 at 07:00 Folic Acid (Folic Acid) 1 mg DAILY PO Last administered on 04/19/17 08:40; Start 04/08/17 at 09:00 Ibuprofen (Motrin) 200 mg DAILY08 PRN PO INFLAMMATION Last administered on 04/08 08:12; Start 04/08/17 at 08:00; Stop 04/08/17 at 15:35; Status DC Cyanocobalamin (Vitamin B-12) 1,000 mcg DAILY PO Last administered on 08:39; Start 04/08/17 at 09:00 Acetaminophen (Tylenol) 650 mg Q8HRS PO Last administered on 04/19/17 19:36; Start 04/08/17 at 15:45 Fosfomycin Tromethamine (Monurol) 3 gm 1X ONCE PO Last administered on 16:38; Start 04/08/17 at 16:30; Stop 04/08/17 at 16:31; Status DC Ibuprofen (Motrin) 200 mg DAILY08 PO Last administered on 04/19/17 08:40; Start 04/08/17 at 16:30 Levothyroxine Sodium (Synthroid) 25 mcg DAILY06 PO Last administered on 05:00; Start 04/09/17 at 06:00 Atorvastatin Calcium (Lipitor) 20 mg QHS PO Last administered on 04/19/17 19: 36; Start 04/08/17 at 21:00 Trazodone HCl (Desyrel) 50 mg PRN QHS PRN PO INSOMNIA, MAY REPEAT X1 Last administered on 04/13/17 19:56; Start 04/08/17 at 18:30 Aripiprazole (Abilify) 20 mg QHS PO ; Start 04/10/17 at 21:00; Stop 04/10/17 at 21:00; Status DC Vitamin D (Vitamin D3) 50,000 unit WEEKLY PO Last administered on 04/17/17 08 :05; Start 04/10/17 at 09:00 Aripiprazole (Abilify) 30 mg QHS PO Last administered on 04/15/17 21:06; Start 04/10/17 at 21:00; Stop 04/16/17 at 11:10; Status DC Bupropion HCl (Wellbutrin Xl) 150 mg DAILY PO Last administered on 04/19/17 08:40; Start 04/16/17 at 09:00 Divalproex Sodium (Depakote Er) 1,500 mg QHS PO Last administered on 19:35; Start 04/15/17 at 21:00 Aripiprazole (Abilify) 35 mg QHS PO Last administered on 04/19/17 19:34; Start 04/16/17 at 21:00 Active Scripts Active Reported Vitamin B12 (Cyanocobalamin (Vitamin B-12)) 5,000 Mcg Tab.rapdis 1,000 Mcg PO DAILY Folic Acid 1 Mg Tablet 1 Mg PO DAILY Ibuprofen 400 Mg Tablet 200 Mg PO DAILY08 Abilify (Aripiprazole) 5 Mg Tablet 10 Mg PO HS Topiramate 100 Mg Tablet 150 Mg PO BID Depakote (Divalproex Sodium) 500 Mg Tablet.dr 500 Mg PO TID Tylenol (Acetaminophen) 325 Mg Tablet 650 Mg PO PRN Q6HRS PRN Diagnosis: Problems: (1) Depression (2) Behavioral problems (3) Anxiety disorder (4) Schizoaffective disorder, chronic condition with acute exacerbation (5) Schizophrenia, disorganized, subchronic with acute exacerbation (6) Bipolar affective, mixed, sev w/ psych VIRGIE FELDMAN MD Apr 19, 2017 20:53
[2017-04-20] MEDS: ACETAMINOPHEN 325 MG TABLET PO SCH ×3 (05:33→20:49)
[2017-04-20] MEDS: LEVOTHYROXINE 25 MCG TABLET. PO SCH (05:33)
[2017-04-20 07:25] VITALS: BP 103/68
[2017-04-20] MEDS: TOPIRAMATE 100 MG TABLET. PO SCH ×2 (08:08→20:49)
[2017-04-20] MEDS: IBUPROFEN 200 MG TABLET PO SCH (08:08)
[2017-04-20] MEDS: FOLIC ACID 1 MG TABLET PO SCH (08:08)
[2017-04-20] MEDS: buPROPion XL 150 MG TAB.ER.24H PO SCH (08:08)
[2017-04-20] MEDS: CYANOCOBALAMIN (VITAMIN B-12) 1,000 MCG TABLET. PO SCH (08:08)
[2017-04-20 16:16] VITALS: BP 100/67
[2017-04-20] MEDS: DIVALPROEX ER 500 MG TAB.ER.24H PO SCH (20:49)
[2017-04-20] MEDS: ATORVASTATIN CALCIUM 20 MG TABLET PO SCH (20:49)
[2017-04-20] MEDS: ARIPiprazole 10 MG TABLET PO SCH (20:58)
--- NOTE | 2017-04-20 21:29 | PDOC ---
Exam Brennen Demential Exam: Brennen Note: Please also refer to the separate dictated note~for this date of service dictated separately.~Patient seen individually. Discussed the patient with Nursing staff reviewed the chart.~Reviewed interim history and current functioning. Reviewed vital signs,~Labs/ Radiology~and current medications noted below. Continue current treatment with the changes noted in the dictated addendum note Assessment: Vital Signs: Vital Signs Date Time Temp Pulse Resp B/P (MAP) Pulse Ox O2 Delivery O2 Flow Rate FiO2 04/20/17 16:16 98.1 71 16 100/67 (78) 97 Room Air I&O Intake and Output 04/21/17 07:00 Intake Total 960 ml Balance 960 ml Intake Oral 960 ml # Bowel Movements 1 Current Medications: Meds: Current Medications Ceftriaxone Sodium 1 gm/ Sodium Chloride 50 ml @ 100 mls/hr 1X ONCE IV Last administered on 04/07/17 19:30; Start 04/07/17 at 19:30; Stop 04/07/17 at 19:59 ; Status DC Sodium Chloride 50 ml @ As Directed STK-MED ONCE .ROUTE ; Start 04/07/17 at 19: 20; Stop 04/07/17 at 19:21; Status DC Ceftriaxone Sodium (Rocephin) 1 gm STK-MED ONCE IV ; Start 04/07/17 at 19:20; Stop 04/07/17 at 19:21; Status DC Acetaminophen (Tylenol) 650 mg PRN Q6HRS PRN PO PAIN / TEMP; Start 04/07/17 at 22:15; Stop 04/08/17 at 15:31; Status DC Multi-Ingredient Ointment (Analgesic [place]) 1 chencho PRN QID PRN TP MUSCLE PAIN; Start 04/07/17 at 22:15 Al Hydroxide/Mg Hydroxide (Mylanta Plus Xs) 15 ml PRN AFTMEALHC PRN PO DYSPEPSIA; Start 04/07/17 at 22:15 Magnesium Hydroxide (Milk Of Magnesia) 2,400 mg PRN QHS PRN PO CONSTIPATION; Start 04/07/17 at 22:15 Info (FLU VACCINE per PROTOCOL) 1 ea PRN 1X PRN [facility] UNABLE TO RESPOND; Start at 00:30; Status Cancel Aripiprazole (Abilify) 10 mg HS PO Last administered on 04/08/17 20:12; Start 04/08/17 at 21:00; Stop 04/09/17 at 10:17; Status DC Topiramate (Topamax) 150 mg BID PO Last administered on 04/20/17 20:49; Start 04/08/17 at 09:00 Divalproex Sodium (Depakote) 500 mg TID PO Last administered on 04/15/17 15: 24; Start 04/08/17 at 09:00; Stop 04/15/17 at 18:46; Status DC Lorazepam (Ativan) 1 mg PRN Q2HR PRN PO ANXIETY / AGITATION; Start 04/08/17 at 03:30 Olanzapine (ZyPREXA ZYDIS) 5 mg PRN Q2HR PRN PO Psychosis Last administered on 04/10/17 20:24; Start 04/08/17 at 03:30 Acetaminophen (Tylenol) 650 mg PRN Q6HRS PRN PO PAIN; Start 04/08/17 at 07:00 Folic Acid (Folic Acid) 1 mg DAILY PO Last administered on 04/20/17 08:08; Start 04/08/17 at 09:00 Ibuprofen (Motrin) 200 mg DAILY08 PRN PO INFLAMMATION Last administered on 04/08 08:12; Start 04/08/17 at 08:00; Stop 04/08/17 at 15:35; Status DC Cyanocobalamin (Vitamin B-12) 1,000 mcg DAILY PO Last administered on 08:08; Start 04/08/17 at 09:00 Acetaminophen (Tylenol) 650 mg Q8HRS PO Last administered on 04/20/17 20:49; Start 04/08/17 at 15:45 Fosfomycin Tromethamine (Monurol) 3 gm 1X ONCE PO Last administered on 16:38; Start 04/08/17 at 16:30; Stop 04/08/17 at 16:31; Status DC Ibuprofen (Motrin) 200 mg DAILY08 PO Last administered on 04/20/17 08:08; Start 04/08/17 at 16:30 Levothyroxine Sodium (Synthroid) 25 mcg DAILY06 PO Last administered on 05:33; Start 04/09/17 at 06:00 Atorvastatin Calcium (Lipitor) 20 mg QHS PO Last administered on 04/20/17 20: 49; Start 04/08/17 at 21:00 Trazodone HCl (Desyrel) 50 mg PRN QHS PRN PO INSOMNIA, MAY REPEAT X1 Last administered on 04/13/17 19:56; Start 04/08/17 at 18:30 Aripiprazole (Abilify) 20 mg QHS PO ; Start 04/10/17 at 21:00; Stop 04/10/17 at 21:00; Status DC Vitamin D (Vitamin D3) 50,000 unit WEEKLY PO Last administered on 04/17/17 08 :05; Start 04/10/17 at 09:00 Aripiprazole (Abilify) 30 mg QHS PO Last administered on 04/15/17 21:06; Start 04/10/17 at 21:00; Stop 04/16/17 at 11:10; Status DC Bupropion HCl (Wellbutrin Xl) 150 mg DAILY PO Last administered on 04/20/17 08:08; Start 04/16/17 at 09:00 Divalproex Sodium (Depakote Er) 1,500 mg QHS PO Last administered on 20:49; Start 04/15/17 at 21:00 Aripiprazole (Abilify) 35 mg QHS PO Last administered on 04/20/17 20:58; Start 04/16/17 at 21:00 Active Scripts Active Reported Vitamin B12 (Cyanocobalamin (Vitamin B-12)) 5,000 Mcg Tab.rapdis 1,000 Mcg PO DAILY Folic Acid 1 Mg Tablet 1 Mg PO DAILY Ibuprofen 400 Mg Tablet 200 Mg PO DAILY08 Abilify (Aripiprazole) 5 Mg Tablet 10 Mg PO HS Topiramate 100 Mg Tablet 150 Mg PO BID Depakote (Divalproex Sodium) 500 Mg Tablet.dr 500 Mg PO TID Tylenol (Acetaminophen) 325 Mg Tablet 650 Mg PO PRN Q6HRS PRN Diagnosis: Problems: (1) Depression (2) Behavioral problems (3) Anxiety disorder (4) Schizoaffective disorder, chronic condition with acute exacerbation (5) Schizophrenia, disorganized, subchronic with acute exacerbation (6) Bipolar affective, mixed, sev w/ psych VIRGIE FELDMAN MD Apr 20, 2017 21:29
--- NOTE | 2017-04-20 22:56 | PN ---
DATE: 04/19/2017 PSYCHIATRIC PROGRESS NOTE This is a late entry for 04/19/2017, covers elements not covered in my initial note of 04/19/2017. SUBJECTIVE: I met with the patient the evening of 04/19/2017. The patient remains somewhat withdrawn, spending much time in her room, but less labile, more cooperative, repeating phrases, somatic, preoccupation is evident. REVIEW OF SYSTEMS: No CV, , pulmonary, eye, ENT system symptoms on review other than nonspecific vague somatic systems, multisystem. MENTAL STATUS EXAM: Oriented to herself and situation. Speech is coherent, repetitive, abstraction fair, computation impaired, language function intact, attention span short, mood and affect somewhat withdrawn. LABORATORY DATA: Reviewed. IMPRESSION: Unchanged from initial note. PLAN: Continue current psychotropics mentioned in my initial note. Valproic acid level is 73, therapeutic. Reviewed drug interactions. Risk/benefit ratio favors no further change. Abilify 35 mg a day. MAN Chloé FELDMAN MD DR: YUSUF/chely JOB#: [id number] / [id number]
[2017-04-21] MEDS: LEVOTHYROXINE 25 MCG TABLET. PO SCH (05:33)
[2017-04-21] MEDS: ACETAMINOPHEN 325 MG TABLET PO SCH ×3 (05:33→20:19)
[2017-04-21 06:18] VITALS: BP 142/81
[2017-04-21] MEDS: TOPIRAMATE 100 MG TABLET. PO SCH ×2 (07:30→20:19)
[2017-04-21] MEDS: IBUPROFEN 200 MG TABLET PO SCH (07:30)
[2017-04-21] MEDS: buPROPion XL 150 MG TAB.ER.24H PO SCH (07:30)
[2017-04-21] MEDS: CYANOCOBALAMIN (VITAMIN B-12) 1,000 MCG TABLET. PO SCH (07:30)
[2017-04-21] MEDS: FOLIC ACID 1 MG TABLET PO SCH (07:30)
[2017-04-21 16:07] VITALS: BP 108/70
[2017-04-21] MEDS: ATORVASTATIN CALCIUM 20 MG TABLET PO SCH (20:16)
[2017-04-21] MEDS: ARIPiprazole 10 MG TABLET PO SCH (20:17)
[2017-04-21] MEDS: DIVALPROEX ER 500 MG TAB.ER.24H PO SCH (20:18)
--- NOTE | 2017-04-21 20:26 | PDOC ---
Exam Brennen Demential Exam: Brennen Note: Please also refer to the separate dictated note~for this date of service dictated separately.~Patient seen individually. Discussed the patient with Nursing staff reviewed the chart.~Reviewed interim history and current functioning. Reviewed vital signs,~Labs/ Radiology~and current medications noted below. Continue current treatment with the changes noted in the dictated addendum note Assessment: Vital Signs: Vital Signs Date Time Temp Pulse Resp B/P (MAP) Pulse Ox O2 Delivery O2 Flow Rate FiO2 04/21/17 16:07 97.6 67 18 108/70 (83) 97 04/20/17 16:16 Room Air I&O Intake and Output 04/22/17 07:00 Intake Total 960 ml Balance 960 ml Intake Oral 960 ml Current Medications: Meds: Current Medications Ceftriaxone Sodium 1 gm/ Sodium Chloride 50 ml @ 100 mls/hr 1X ONCE IV Last administered on 04/07/17 19:30; Start 04/07/17 at 19:30; Stop 04/07/17 at 19:59 ; Status DC Sodium Chloride 50 ml @ As Directed STK-MED ONCE .ROUTE ; Start 04/07/17 at 19: 20; Stop 04/07/17 at 19:21; Status DC Ceftriaxone Sodium (Rocephin) 1 gm STK-MED ONCE IV ; Start 04/07/17 at 19:20; Stop 04/07/17 at 19:21; Status DC Acetaminophen (Tylenol) 650 mg PRN Q6HRS PRN PO PAIN / TEMP; Start 04/07/17 at 22:15; Stop 04/08/17 at 15:31; Status DC Multi-Ingredient Ointment (Analgesic [place]) 1 chencho PRN QID PRN TP MUSCLE PAIN; Start 04/07/17 at 22:15 Al Hydroxide/Mg Hydroxide (Mylanta Plus Xs) 15 ml PRN AFTMEALHC PRN PO DYSPEPSIA; Start 04/07/17 at 22:15 Magnesium Hydroxide (Milk Of Magnesia) 2,400 mg PRN QHS PRN PO CONSTIPATION; Start 04/07/17 at 22:15 Info (FLU VACCINE per PROTOCOL) 1 ea PRN 1X PRN [facility] UNABLE TO RESPOND; Start at 00:30; Status Cancel Aripiprazole (Abilify) 10 mg HS PO Last administered on 04/08/17 20:12; Start 04/08/17 at 21:00; Stop 04/09/17 at 10:17; Status DC Topiramate (Topamax) 150 mg BID PO Last administered on 04/21/17 20:19; Start 04/08/17 at 09:00 Divalproex Sodium (Depakote) 500 mg TID PO Last administered on 04/15/17 15: 24; Start 04/08/17 at 09:00; Stop 04/15/17 at 18:46; Status DC Lorazepam (Ativan) 1 mg PRN Q2HR PRN PO ANXIETY / AGITATION; Start 04/08/17 at 03:30 Olanzapine (ZyPREXA ZYDIS) 5 mg PRN Q2HR PRN PO Psychosis Last administered on 04/10/17 20:24; Start 04/08/17 at 03:30 Acetaminophen (Tylenol) 650 mg PRN Q6HRS PRN PO PAIN; Start 04/08/17 at 07:00 Folic Acid (Folic Acid) 1 mg DAILY PO Last administered on 04/21/17 07:30; Start 04/08/17 at 09:00 Ibuprofen (Motrin) 200 mg DAILY08 PRN PO INFLAMMATION Last administered on 04/08 08:12; Start 04/08/17 at 08:00; Stop 04/08/17 at 15:35; Status DC Cyanocobalamin (Vitamin B-12) 1,000 mcg DAILY PO Last administered on 07:30; Start 04/08/17 at 09:00 Acetaminophen (Tylenol) 650 mg Q8HRS PO Last administered on 04/21/17 20:19; Start 04/08/17 at 15:45 Fosfomycin Tromethamine (Monurol) 3 gm 1X ONCE PO Last administered on 16:38; Start 04/08/17 at 16:30; Stop 04/08/17 at 16:31; Status DC Ibuprofen (Motrin) 200 mg DAILY08 PO Last administered on 04/21/17 07:30; Start 04/08/17 at 16:30 Levothyroxine Sodium (Synthroid) 25 mcg DAILY06 PO Last administered on 05:33; Start 10/5/17 at 06:00 Atorvastatin Calcium (Lipitor) 20 mg QHS PO Last administered on 04/21/17 20: 16; Start 04/08/17 at 21:00 Trazodone HCl (Desyrel) 50 mg PRN QHS PRN PO INSOMNIA, MAY REPEAT X1 Last administered on 04/13/17 19:56; Start 04/08/17 at 18:30 Aripiprazole (Abilify) 20 mg QHS PO ; Start 04/10/17 at 21:00; Stop 04/10/17 at 21:00; Status DC Vitamin D (Vitamin D3) 50,000 unit WEEKLY PO Last administered on 04/17/17 08 :05; Start 04/10/17 at 09:00 Aripiprazole (Abilify) 30 mg QHS PO Last administered on 04/15/17 21:06; Start 04/10/17 at 21:00; Stop 04/16/17 at 11:10; Status DC Bupropion HCl (Wellbutrin Xl) 150 mg DAILY PO Last administered on 04/21/17 07:30; Start 04/16/17 at 09:00 Divalproex Sodium (Depakote Er) 1,500 mg QHS PO Last administered on 20:18; Start 04/15/17 at 21:00 Aripiprazole (Abilify) 35 mg QHS PO Last administered on 04/21/17 20:17; Start 04/16/17 at 21:00 Active Scripts Active Reported Vitamin B12 (Cyanocobalamin (Vitamin B-12)) 5,000 Mcg Tab.rapdis 1,000 Mcg PO DAILY Folic Acid 1 Mg Tablet 1 Mg PO DAILY Ibuprofen 400 Mg Tablet 200 Mg PO DAILY08 Abilify (Aripiprazole) 5 Mg Tablet 10 Mg PO HS Topiramate 100 Mg Tablet 150 Mg PO BID Depakote (Divalproex Sodium) 500 Mg Tablet.dr 500 Mg PO TID Tylenol (Acetaminophen) 325 Mg Tablet 650 Mg PO PRN Q6HRS PRN Diagnosis: Problems: (1) Depression (2) Behavioral problems (3) Anxiety disorder (4) Schizoaffective disorder, chronic condition with acute exacerbation (5) Schizophrenia, disorganized, subchronic with acute exacerbation (6) Bipolar affective, mixed, sev w/ psych VIRGIE FELDMAN MD Apr 21, 2017 20:26
--- NOTE | 2017-04-22 03:13 | PN ---
DATE: 04/20/2017 PSYCHIATRIC PROGRESS NOTE This is a late entry for 04/20/2017, covers the elements not covered in my initial note of 04/20/2017. SUBJECTIVE: I met with the patient the evening of 04/20/2017. Overall, the patient remains somewhat repetitive, somatically preoccupied when I met with her. REVIEW OF SYSTEMS: No specific CV, , pulmonary, eye, ENT system symptoms on review. Repeatedly complaining of "I have pains everywhere, I have chest pains everywhere, cannot walk." She yells out at times, somewhat helpless, believes one of the other demented patients on the unit is her boyfriend, fixated on this. Valproic acid level is therapeutic at 73. MENTAL STATUS EXAM: Oriented to herself and situation. Speech is coherent, repetitive, abstraction fair, computation impaired, language function intact, attention span short. Mood and affect remain somewhat anxious, labile. LABORATORY DATA: Reviewed. IMPRESSION: Unchanged from initial note. PLAN: Continue current psychotropics, reviewed drug interactions, risk/benefit ratio favors no further change. Abilify ____ mg a day, trazodone for insomnia, Depakote level is therapeutic, Topamax 150 b.i.d. for migraine prophylaxis, Wellbutrin and Zyprexa together with Ativan p.r.n. Adjust further as clinically indicated. VIRGIE FELDMAN MD DR: YUSUF/chely JOB#: [id number] / [id number]
[2017-04-22] MEDS: LEVOTHYROXINE 25 MCG TABLET. PO SCH (05:39)
[2017-04-22] MEDS: ACETAMINOPHEN 325 MG TABLET PO SCH ×3 (05:39→19:24)
[2017-04-22 06:01] VITALS: BP 101/62
[2017-04-22] MEDS: CYANOCOBALAMIN (VITAMIN B-12) 1,000 MCG TABLET. PO SCH (07:55)
[2017-04-22] MEDS: IBUPROFEN 200 MG TABLET PO SCH (07:55)
[2017-04-22] MEDS: FOLIC ACID 1 MG TABLET PO SCH (07:55)
[2017-04-22] MEDS: buPROPion XL 150 MG TAB.ER.24H PO SCH (07:55)
[2017-04-22] MEDS: TOPIRAMATE 100 MG TABLET. PO SCH ×2 (07:55→19:21)
[2017-04-22 16:19] VITALS: BP 94/56
[2017-04-22] MEDS: ATORVASTATIN CALCIUM 20 MG TABLET PO SCH (19:22)
[2017-04-22] MEDS: ARIPiprazole 10 MG TABLET PO SCH (19:23)
[2017-04-22] MEDS: DIVALPROEX ER 500 MG TAB.ER.24H PO SCH (19:24)
--- NOTE | 2017-04-22 20:55 | PDOC ---
Exam Brennen Demential Exam: Brennen Note: Please also refer to the separate dictated note~for this date of service dictated separately.~Patient seen individually. Discussed the patient with Nursing staff reviewed the chart.~Reviewed interim history and current functioning. Reviewed vital signs,~Labs/ Radiology~and current medications noted below. Continue current treatment with the changes noted in the dictated addendum note Assessment: Vital Signs: Vital Signs Date Time Temp Pulse Resp B/P (MAP) Pulse Ox O2 Delivery O2 Flow Rate FiO2 04/22/17 16:19 98.3 80 20 94/56 (69) 97 04/20/17 16:16 Room Air I&O Intake and Output 04/23/17 06:59 Intake Total 720 ml Balance 720 ml Intake Oral 720 ml # Bowel Movements 1 Current Medications: Meds: Current Medications Ceftriaxone Sodium 1 gm/ Sodium Chloride 50 ml @ 100 mls/hr 1X ONCE IV Last administered on 04/07/17 19:30; Start 04/07/17 at 19:30; Stop 04/07/17 at 19:59 ; Status DC Sodium Chloride 50 ml @ As Directed STK-MED ONCE .ROUTE ; Start 04/07/17 at 19: 20; Stop 04/07/17 at 19:21; Status DC Ceftriaxone Sodium (Rocephin) 1 gm STK-MED ONCE IV ; Start 04/07/17 at 19:20; Stop 04/07/17 at 19:21; Status DC Acetaminophen (Tylenol) 650 mg PRN Q6HRS PRN PO PAIN / TEMP; Start 04/07/17 at 22:15; Stop 04/08/17 at 15:31; Status DC Multi-Ingredient Ointment (Analgesic [place]) 1 chencho PRN QID PRN TP MUSCLE PAIN; Start 04/07/17 at 22:15 Al Hydroxide/Mg Hydroxide (Mylanta Plus Xs) 15 ml PRN AFTMEALHC PRN PO DYSPEPSIA; Start 04/07/17 at 22:15 Magnesium Hydroxide (Milk Of Magnesia) 2,400 mg PRN QHS PRN PO CONSTIPATION; Start 04/07/17 at 22:15 Info (FLU VACCINE per PROTOCOL) 1 ea PRN 1X PRN [facility] UNABLE TO RESPOND; Start at 00:30; Status Cancel Aripiprazole (Abilify) 10 mg HS PO Last administered on 04/08/17 20:12; Start 04/08/17 at 21:00; Stop 04/09/17 at 10:17; Status DC Topiramate (Topamax) 150 mg BID PO Last administered on 04/22/17 19:21; Start 04/08/17 at 09:00 Divalproex Sodium (Depakote) 500 mg TID PO Last administered on 04/15/17 15: 24; Start 04/08/17 at 09:00; Stop 04/15/17 at 18:46; Status DC Lorazepam (Ativan) 1 mg PRN Q2HR PRN PO ANXIETY / AGITATION; Start 04/08/17 at 03:30 Olanzapine (ZyPREXA ZYDIS) 5 mg PRN Q2HR PRN PO Psychosis Last administered on 04/10/17 20:24; Start 04/08/17 at 03:30 Acetaminophen (Tylenol) 650 mg PRN Q6HRS PRN PO PAIN; Start 04/08/17 at 07:00 Folic Acid (Folic Acid) 1 mg DAILY PO Last administered on 04/22/17 07:55; Start 04/08/17 at 09:00 Ibuprofen (Motrin) 200 mg DAILY08 PRN PO INFLAMMATION Last administered on 04/08 08:12; Start 04/08/17 at 08:00; Stop 04/08/17 at 15:35; Status DC Cyanocobalamin (Vitamin B-12) 1,000 mcg DAILY PO Last administered on 07:55; Start 04/08/17 at 09:00 Acetaminophen (Tylenol) 650 mg Q8HRS PO Last administered on 04/22/17 19:24; Start 04/08/17 at 15:45 Fosfomycin Tromethamine (Monurol) 3 gm 1X ONCE PO Last administered on 16:38; Start 04/08/17 at 16:30; Stop 04/08/17 at 16:31; Status DC Ibuprofen (Motrin) 200 mg DAILY08 PO Last administered on 04/22/17 07:55; Start 04/08/17 at 16:30 Levothyroxine Sodium (Synthroid) 25 mcg DAILY06 PO Last administered on 05:39; Start 04/09/17 at 06:00 Atorvastatin Calcium (Lipitor) 20 mg QHS PO Last administered on 04/22/17 19: 22; Start 04/08/17 at 21:00 Trazodone HCl (Desyrel) 50 mg PRN QHS PRN PO INSOMNIA, MAY REPEAT X1 Last administered on 04/13/17 19:56; Start 04/08/17 at 18:30 Aripiprazole (Abilify) 20 mg QHS PO ; Start 04/10/17 at 21:00; Stop 04/10/17 at 21:00; Status DC Vitamin D (Vitamin D3) 50,000 unit WEEKLY PO Last administered on 04/17/17 08 :05; Start 04/10/17 at 09:00 Aripiprazole (Abilify) 30 mg QHS PO Last administered on 04/15/17 21:06; Start 04/10/17 at 21:00; Stop 04/16/17 at 11:10; Status DC Bupropion HCl (Wellbutrin Xl) 150 mg DAILY PO Last administered on 04/22/17 07:55; Start 04/16/17 at 09:00 Divalproex Sodium (Depakote Er) 1,500 mg QHS PO Last administered on 19:24; Start 04/15/17 at 21:00 Aripiprazole (Abilify) 35 mg QHS PO Last administered on 04/22/17 19:23; Start 04/16/17 at 21:00 Active Scripts Active Reported Vitamin B12 (Cyanocobalamin (Vitamin B-12)) 5,000 Mcg Tab.rapdis 1,000 Mcg PO DAILY Folic Acid 1 Mg Tablet 1 Mg PO DAILY Ibuprofen 400 Mg Tablet 200 Mg PO DAILY08 Abilify (Aripiprazole) 5 Mg Tablet 10 Mg PO HS Topiramate 100 Mg Tablet 150 Mg PO BID Depakote (Divalproex Sodium) 500 Mg Tablet.dr 500 Mg PO TID Tylenol (Acetaminophen) 325 Mg Tablet 650 Mg PO PRN Q6HRS PRN Diagnosis: Problems: (1) Depression (2) Behavioral problems (3) Anxiety disorder (4) Schizoaffective disorder, chronic condition with acute exacerbation (5) Schizophrenia, disorganized, subchronic with acute exacerbation (6) Bipolar affective, mixed, sev w/ psych VIRGIE FELDMAN MD Apr 22, 2017 20:55
--- NOTE | 2017-04-23 02:15 | PN ---
DATE: 04/21/2017 This late entry 04/21/2017 covers elements not covered in my initial note of 04/21/2017. SUBJECTIVE: I met with the patient evening of 04/21/2017. The patient has been less repetitive in her verbalization, takes only Boost for meals, somewhat anxious, restless. Overall, despite that she is less psychotic. REVIEW OF SYSTEMS: No CV, , pulmonary, eye, ENT system symptoms on review. Has vague somatic symptoms. MENTAL STATUS EXAM: Oriented to herself and situation. Speech coherent, repetitive, abstraction fair, computation impaired, language function intact, attention span short. Mood and affect remain somewhat labile but improved. LABORATORY DATA: Reviewed. IMPRESSION: Unchanged from initial note. Valproic acid level therapeutic at 73. PLAN: Continue current psychotropics including Depakote, trazodone, Wellbutrin, Zyprexa, Ativan p.r.n., Abilify 35 mg a day. Reviewed drug interactions, risk/benefit ratio favors no further change for now. VIRGIE FELDMAN MD DR: YUSUF/chely JOB#: [id number] / [id number]
[2017-04-23] MEDS ORDERED: ACET325T9 PO (02:54)
[2017-04-23] MEDS ORDERED: ATOR20TA58 PO (02:55)
[2017-04-23] MEDS ORDERED: CHOL500021 PO (02:56)
[2017-04-23] MEDS ORDERED: LORA1TAB PO (02:59)
[2017-04-23] MEDS ORDERED: LEVO25TA4 PO (02:59)
[2017-04-23] MEDS ORDERED: OLAN5TAB3 PO (03:00)
[2017-04-23] MEDS ORDERED: BUPR-192 PO (03:02)
[2017-04-23] MEDS ORDERED: TRAZ50TA15 PO (03:02)
[2017-04-23] MEDS ORDERED: DIVA500T17 PO (03:04)
[2017-04-23] MEDS: LEVOTHYROXINE 25 MCG TABLET. PO SCH (05:32)
[2017-04-23] MEDS: ACETAMINOPHEN 325 MG TABLET PO SCH ×3 (05:32→21:31)
[2017-04-23 06:15] LABS: BASO % 1 % (0-3); EOS # 0.1 x10^3/uL (0.0-0.7); EOS % 1 % (0-3); HEMATOCRIT 36.2 % (36.0-47.0); HEMOGLOBIN 12.2 g/dL (12.0-15.5); LYMPH # 2.2 x10^3/uL (1.0-4.8); LYMPH % 35 % (24-48); MEAN CORPUSCULAR HEMOGLOBIN 34 pg (25-35); MEAN CORPUSCULAR HGB CONC 34 g/dL (31-37); MEAN CORPUSCULAR VOLUME 101 fL (79-100); MONO % 17 % (0-9); NEUT # 2.9 x10^3uL (1.8-7.7); NEUT % 47 % (31-73); PLATELET COUNT 195 x10^3/uL (140-400); RED BLOOD COUNT 3.58 x10^6/uL (3.50-5.40); RED CELL DISTRIBUTION WIDTH 15.9 % (11.5-14.5); WHITE BLOOD COUNT 6.2 x10^3/uL (4.0-11.0)
[2017-04-23 06:26] LABS: ALBUMIN 2.6 g/dL (3.4-5.0); ALBUMIN/GLOBULIN RATIO 0.7 (1.0-1.7); ALK PHOS 44 U/L (46-116); ALT (SGPT) 11 U/L (14-59); ANION GAP 8 (6-14); AST (SGOT) 9 U/L (15-37); BLOOD UREA NITROGEN 31 mg/dL (7-20); BUN/CREATININE RATIO 44 (6-20); CALCIUM 8.8 mg/dL (8.5-10.1); CARBON DIOXIDE 26 mmol/L (21-32); CHLORIDE 106 mmol/L (98-107); CREATININE 0.7 mg/dL (0.6-1.0); GFR 83.2; GLUCOSE 92 mg/dL (70-99); MAGNESIUM 2.3 mg/dL (1.8-2.4); SODIUM 140 mmol/L (136-145); TOTAL BILIRUBIN 0.2 mg/dL (0.2-1.0); TOTAL PROTEIN 6.5 g/dL (6.4-8.2)
[2017-04-23 06:27] LABS: VAL ACID 67 mcg/mL (50-100)
[2017-04-23 06:36] VITALS: BP 112/63
[2017-04-23] MEDS: buPROPion XL 150 MG TAB.ER.24H PO SCH (07:34)
[2017-04-23] MEDS: FOLIC ACID 1 MG TABLET PO SCH (07:35)
[2017-04-23] MEDS: TOPIRAMATE 100 MG TABLET. PO SCH ×2 (07:35→19:42)
[2017-04-23] MEDS: CYANOCOBALAMIN (VITAMIN B-12) 1,000 MCG TABLET. PO SCH (07:35)
[2017-04-23] MEDS: IBUPROFEN 200 MG TABLET PO SCH (07:35)
[2017-04-23 16:22] VITALS: BP 96/65
[2017-04-23] MEDS: ARIPiprazole 10 MG TABLET PO SCH (19:41)
[2017-04-23] MEDS: ATORVASTATIN CALCIUM 20 MG TABLET PO SCH (19:42)
[2017-04-23] MEDS: DIVALPROEX ER 500 MG TAB.ER.24H PO SCH (19:42)
--- NOTE | 2017-04-23 20:58 | PDOC ---
Exam Brennen Demential Exam: Brennen Note: Please also refer to the separate dictated note~for this date of service dictated separately.~Patient seen individually. Discussed the patient with Nursing staff reviewed the chart.~Reviewed interim history and current functioning. Reviewed vital signs,~Labs/ Radiology~and current medications noted below. Continue current treatment with the changes noted in the dictated addendum note Assessment: Vital Signs: Vital Signs Date Time Temp Pulse Resp B/P (MAP) Pulse Ox O2 Delivery O2 Flow Rate FiO2 04/23/17 16:22 98.5 81 20 96/65 (75) 97 04/20/17 16:16 Room Air I&O Intake and Output 04/24/17 07:00 Intake Total 1280 ml Balance 1280 ml Intake Oral 1280 ml Labs: Laboratory Tests Test 04/23/17 05:58 White Blood Count 6.2 x10^3/uL (4.0-11.0) Red Blood Count 3.58 x10^6/uL (3.50-5.40) Hemoglobin 12.2 g/dL (12.0-15.5) Hematocrit 36.2 % (36.0-47.0) Mean Corpuscular Volume 101 fL (79-100) H Mean Corpuscular Hemoglobin 34 pg (25-35) Mean Corpuscular Hemoglobin Concent 34 g/dL (31-37) Red Cell Distribution Width 15.9 % (11.5-14.5) H Platelet Count 195 x10^3/uL (140-400) Neutrophils (%) (Auto) 47 % (31-73) Lymphocytes (%) (Auto) 35 % (24-48) Monocytes (%) (Auto) 17 % (0-9) H Eosinophils (%) (Auto) 1 % (0-3) Basophils (%) (Auto) 1 % (0-3) Neutrophils # (Auto) 2.9 x10^3uL (1.8-7.7) Lymphocytes # (Auto) 2.2 x10^3/uL (1.0-4.8) Monocytes # (Auto) 1.0 x10^3/uL (0.0-1.1) Eosinophils # (Auto) 0.1 x10^3/uL (0.0-0.7) Basophils # (Auto) 0.0 x10^3/uL (0.0-0.2) Sodium Level 140 mmol/L (136-145) Potassium Level 4.0 mmol/L (3.5-5.1) Chloride Level 106 mmol/L (98-107) Carbon Dioxide Level 26 mmol/L (21-32) Anion Gap 8 (6-14) Blood Urea Nitrogen 31 mg/dL (7-20) H Creatinine 0.7 mg/dL (0.6-1.0) Estimated GFR (Cockcroft-Gault) 83.2 BUN/Creatinine Ratio 44 (6-20) H Glucose Level 92 mg/dL (70-99) Calcium Level 8.8 mg/dL (8.5-10.1) Magnesium Level 2.3 mg/dL (1.8-2.4) Total Bilirubin 0.2 mg/dL (0.2-1.0) Aspartate Amino Transferase (AST) 9 U/L (15-37) L Alanine Aminotransferase (ALT) 11 U/L (14-59) L Alkaline Phosphatase 44 U/L (46-116) L Total Protein 6.5 g/dL (6.4-8.2) Albumin 2.6 g/dL (3.4-5.0) L Albumin/Globulin Ratio 0.7 (1.0-1.7) L Valproic Acid Level 67 mcg/mL (50-100) Valproic Acid Last Dose Date 04/22/2017 Valproic Acid Last Dose Time 2100 Current Medications: Meds: Current Medications Ceftriaxone Sodium 1 gm/ Sodium Chloride 50 ml @ 100 mls/hr 1X ONCE IV Last administered on 04/07/17t 19:30; Start 04/07/17 at 19:30; Stop 04/07/17 at 19:59 ; Status DC Sodium Chloride 50 ml @ As Directed STK-MED ONCE .ROUTE ; Start 04/07/17 at 19: 20; Stop 04/07/17 at 19:21; Status DC Ceftriaxone Sodium (Rocephin) 1 gm STK-MED ONCE IV ; Start 04/07/17 at 19:20; Stop 04/07/17 at 19:21; Status DC Acetaminophen (Tylenol) 650 mg PRN Q6HRS PRN PO PAIN / TEMP; Start 04/07/17 at 22:15; Stop 04/08/17 at 15:31; Status DC Multi-Ingredient Ointment (Analgesic [place]) 1 chencho PRN QID PRN TP MUSCLE PAIN; Start 04/07/17 at 22:15 Al Hydroxide/Mg Hydroxide (Mylanta Plus Xs) 15 ml PRN AFTMEALHC PRN PO DYSPEPSIA; Start 04/07/17 at 22:15 Magnesium Hydroxide (Milk Of Magnesia) 2,400 mg PRN QHS PRN PO CONSTIPATION; Start 04/07/17 at 22:15 Info (FLU VACCINE per PROTOCOL) 1 ea PRN 1X PRN [facility] UNABLE TO RESPOND; Start at 00:30; Status Cancel Aripiprazole (Abilify) 10 mg HS PO Last administered on 04/08/17 20:12; Start 04/08/17 at 21:00; Stop 04/09/17 at 10:17; Status DC Topiramate (Topamax) 150 mg BID PO Last administered on 04/23/17 19:42; Start 04/08/17 at 09:00 Divalproex Sodium (Depakote) 500 mg TID PO Last administered on 04/15/17 15: 24; Start 04/08/17 at 09:00; Stop 04/15/17 at 18:46; Status DC Lorazepam (Ativan) 1 mg PRN Q2HR PRN PO ANXIETY / AGITATION; Start 04/08/17 at 03:30 Olanzapine (ZyPREXA ZYDIS) 5 mg PRN Q2HR PRN PO Psychosis Last administered on 04/10/17 20:24; Start 04/08/17 at 03:30 Acetaminophen (Tylenol) 650 mg PRN Q6HRS PRN PO PAIN; Start 04/08/17 at 07:00 Folic Acid (Folic Acid) 1 mg DAILY PO Last administered on 04/23/17 07:35; Start 04/08/17 at 09:00 Ibuprofen (Motrin) 200 mg DAILY08 PRN PO INFLAMMATION Last administered on 04/08 08:12; Start 04/08/17 at 08:00; Stop 04/08/17 at 15:35; Status DC Cyanocobalamin (Vitamin B-12) 1,000 mcg DAILY PO Last administered on 07:35; Start 04/08/17 at 09:00 Acetaminophen (Tylenol) 650 mg Q8HRS PO Last administered on 04/23/17 13:59; Start 04/08/17 at 15:45 Fosfomycin Tromethamine (Monurol) 3 gm 1X ONCE PO Last administered on 16:38; Start 04/08/17 at 16:30; Stop 04/08/17 at 16:31; Status DC Ibuprofen (Motrin) 200 mg DAILY08 PO Last administered on 04/23/17 07:35; Start 04/08/17 at 16:30 Levothyroxine Sodium (Synthroid) 25 mcg DAILY06 PO Last administered on 05:32; Start 04/09/17 at 06:00 Atorvastatin Calcium (Lipitor) 20 mg QHS PO Last administered on 04/23/17 19: 42; Start 04/08/17 at 21:00 Trazodone HCl (Desyrel) 50 mg PRN QHS PRN PO INSOMNIA, MAY REPEAT X1 Last administered on 04/13/17 19:56; Start 04/08/17 at 18:30 Aripiprazole (Abilify) 20 mg QHS PO ; Start 04/10/17 at 21:00; Stop 04/10/17 at 21:00; Status DC Vitamin D (Vitamin D3) 50,000 unit WEEKLY PO Last administered on 04/17/17 08 :05; Start 04/10/17 at 09:00 Aripiprazole (Abilify) 30 mg QHS PO Last administered on 04/15/17 21:06; Start 04/10/17 at 21:00; Stop 04/16/17 at 11:10; Status DC Bupropion HCl (Wellbutrin Xl) 150 mg DAILY PO Last administered on 04/23/17 07:34; Start 04/16/17 at 09:00 Divalproex Sodium (Depakote Er) 1,500 mg QHS PO Last administered on 19:42; Start 04/15/17 at 21:00 Aripiprazole (Abilify) 35 mg QHS PO Last administered on 04/23/17 19:41; Start 04/16/17 at 21:00 Active Scripts Active Reported Trazodone Hcl 50 Mg Tablet 50 Mg PO PRN QHS PRN Bupropion Xl (Bupropion Hcl) 150 Mg Tab.er.24h 150 Mg PO DAILY Zyprexa (Olanzapine) 5 Mg Tablet 5 Mg PO PRN Q2HR PRN Lorazepam 1 Mg Tablet 1 Mg PO PRN Q2HR PRN Levothyroxine Sodium 25 Mcg Tablet 25 Mcg PO DAILY06 D3-50 (Cholecalciferol (Vitamin D3)) 50,000 Unit Capsule 50,000 Unit PO WEEKLY Atorvastatin Calcium 20 Mg Tablet 20 Mg PO QHS Tylenol (Acetaminophen) 325 Mg Tablet 650 Mg PO Q8HRS Vitamin B12 (Cyanocobalamin (Vitamin B-12)) 5,000 Mcg Tab.rapdis 1,000 Mcg PO DAILY Folic Acid 1 Mg Tablet 1 Mg PO DAILY Ibuprofen 400 Mg Tablet 200 Mg PO DAILY08 Abilify (Aripiprazole) 5 Mg Tablet 10 Mg PO HS Topiramate 100 Mg Tablet 150 Mg PO BID Depakote (Divalproex Sodium) 500 Mg Tablet.dr 500 Mg PO TID Tylenol (Acetaminophen) 325 Mg Tablet 650 Mg PO PRN Q6HRS PRN Diagnosis: Problems: (1) Depression (2) Behavioral problems (3) Anxiety disorder (4) Schizoaffective disorder, chronic condition with acute exacerbation (5) Schizophrenia, disorganized, subchronic with acute exacerbation (6) Bipolar affective, mixed, sev w/ psych VIRGIE FELDMAN MD Apr 23, 2017 20:58
[2017-04-23] MEDS ORDERED: MAG30ORA2 PO (22:18)
[2017-04-23] MEDS ORDERED: MAGN2400 PO (22:19)
[2017-04-23] MEDS ORDERED: METH29OI TP (22:20)
[2017-04-24] MEDS: ACETAMINOPHEN 325 MG TABLET PO SCH (05:02)
[2017-04-24] MEDS: LEVOTHYROXINE 25 MCG TABLET. PO SCH (05:02)
--- NOTE | 2017-04-24 05:04 | PN ---
DATE: 04/22/2017 PSYCHIATRIC PROGRESS NOTE This late entry 04/22/2017 covers elements not covered in my initial note of 04/22/2017. SUBJECTIVE: I met with the patient the evening of 04/22/2017. The patient has been coming out for meals, remains somatically preoccupied, but not been yelling. She still repetitive. REVIEW OF SYSTEMS: No CV, , pulmonary, eye, ENT system symptoms on review. MENTAL STATUS EXAM: Oriented to herself, situation. Speech is coherent, abstraction fair, computation impaired, language function intact, attention span short. Mood and affect remain somewhat anxious, but mood lability overall better. LABORATORIES: Reviewed. IMPRESSION: Unchanged from initial note. PLAN: Continue current psychotropics. Review drug interactions, risk/benefit ratio favors no further change. MAN Chloé FELDMAN MD DR: YUSUF/chely JOB#: [id number] / [id number]
[2017-04-24 05:54] VITALS: BP 111/70
[2017-04-24] MEDS: CYANOCOBALAMIN (VITAMIN B-12) 1,000 MCG TABLET. PO SCH (07:48)
[2017-04-24] MEDS: CHOLECALCIFEROL (VITAMIN D3) 50,000 UNIT CAPSULE PO SCH (07:48)
[2017-04-24] MEDS: FOLIC ACID 1 MG TABLET PO SCH (07:49)
[2017-04-24] MEDS: TOPIRAMATE 100 MG TABLET. PO SCH (07:49)
[2017-04-24] MEDS: buPROPion XL 150 MG TAB.ER.24H PO SCH (07:50)
[2017-04-24] MEDS: IBUPROFEN 200 MG TABLET PO SCH (07:50)
--- NOTE | 2017-04-24 19:13 | PDOC ---
Exam Brennen Demential Exam: Brennen Note: Please also refer to the separate dictated note~for this date of service dictated separately.~Patient seen individually. Discussed the patient with Nursing staff reviewed the chart.~Reviewed interim history and current functioning. Reviewed vital signs,~Labs/ Radiology~and current medications noted below. Continue current treatment with the changes noted in the dictated addendum note Assessment: Vital Signs: Vital Signs Date Time Temp Pulse Resp B/P (MAP) Pulse Ox O2 Delivery O2 Flow Rate FiO2 04/24/17 05:54 97.0 90 20 111/70 (84) 99 04/20/17 16:16 Room Air I&O Intake and Output 04/25/17 07:00 Intake Total 600 ml Balance 600 ml Intake Oral 600 ml Current Medications: Meds: Current Medications Ceftriaxone Sodium 1 gm/ Sodium Chloride 50 ml @ 100 mls/hr 1X ONCE IV Last administered on 04/07/17t 19:30; Start 04/07/17 at 19:30; Stop 04/07/17 at 19:59 ; Status DC Sodium Chloride 50 ml @ As Directed STK-MED ONCE .ROUTE ; Start 04/07/17 at 19: 20; Stop 04/07/17 at 19:21; Status DC Ceftriaxone Sodium (Rocephin) 1 gm STK-MED ONCE IV ; Start 04/07/17 at 19:20; Stop 04/07/17 at 19:21; Status DC Acetaminophen (Tylenol) 650 mg PRN Q6HRS PRN PO PAIN / TEMP; Start 04/07/17 at 22:15; Stop 04/08/17 at 15:31; Status DC Multi-Ingredient Ointment (Analgesic [place]) 1 praneeth PRN QID PRN TP MUSCLE PAIN; Start 04/07/17 at 22:15; Stop 04/24/17 at 12:38; Status DC Al Hydroxide/Mg Hydroxide (Mylanta Plus Xs) 15 ml PRN AFTMEALHC PRN PO DYSPEPSIA; Start 04/07/17 at 22:15; Stop 04/24/17 at 12:38; Status DC Magnesium Hydroxide (Milk Of Magnesia) 2,400 mg PRN QHS PRN PO CONSTIPATION; Start 04/07/17 at 22:15; Stop 04/24/17 at 12:38; Status DC Info (FLU VACCINE per PROTOCOL) 1 ea PRN 1X PRN [facility] UNABLE TO RESPOND; Start at 00:30; Status Cancel Aripiprazole (Abilify) 10 mg HS PO Last administered on 04/08/17 20:12; Start 04/08/17 at 21:00; Stop 04/09/17 at 10:17; Status DC Topiramate (Topamax) 150 mg BID PO Last administered on 04/24/17 07:49; Start 04/08/17 at 09:00; Stop 04/24/17 at 12:38; Status DC Divalproex Sodium (Depakote) 500 mg TID PO Last administered on 04/15/17 15: 24; Start 04/08/17 at 09:00; Stop 04/15/17 at 18:46; Status DC Lorazepam (Ativan) 1 mg PRN Q2HR PRN PO ANXIETY / AGITATION; Start 04/08/17 at 03:30; Stop 04/24/17 at 12:38; Status DC Olanzapine (ZyPREXA ZYDIS) 5 mg PRN Q2HR PRN PO Psychosis Last administered on 04/24/17 11:46; Start 04/08/17 at 03:30; Stop 04/24/17 at 12:38; Status DC Acetaminophen (Tylenol) 650 mg PRN Q6HRS PRN PO PAIN; Start 04/08/17 at 07:00; Stop 04/24/17 at 12:38; Status DC Folic Acid (Folic Acid) 1 mg DAILY PO Last administered on 04/24/17 07:49; Start 04/08/17 at 09:00; Stop 04/24/17 at 12:38; Status DC Ibuprofen (Motrin) 200 mg DAILY08 PRN PO INFLAMMATION Last administered on 04/08 08:12; Start 04/08/17 at 08:00; Stop 04/08/17 at 15:35; Status DC Cyanocobalamin (Vitamin B-12) 1,000 mcg DAILY PO Last administered on 07:48; Start 04/08/17 at 09:00; Stop 04/24/17 at 12:38; Status DC Acetaminophen (Tylenol) 650 mg Q8HRS PO Last administered on 04/24/17 05:02; Start 04/08/17 at 15:45; Stop 04/24/17 at 12:38; Status DC Fosfomycin Tromethamine (Monurol) 3 gm 1X ONCE PO Last administered on 16:38; Start 04/08/17 at 16:30; Stop 04/08/17 at 16:31; Status DC Ibuprofen (Motrin) 200 mg DAILY08 PO Last administered on 04/24/17 07:50; Start 04/08/17 at 16:30; Stop 04/24/17 at 12:38; Status DC Levothyroxine Sodium (Synthroid) 25 mcg DAILY06 PO Last administered on 05:02; Start 04/09/17 at 06:00; Stop 04/24/17 at 12:38; Status DC Atorvastatin Calcium (Lipitor) 20 mg QHS PO Last administered on 04/23/17 19: 42; Start 04/08/17 at 21:00; Stop 04/24/17 at 12:38; Status DC Trazodone HCl (Desyrel) 50 mg PRN QHS PRN PO INSOMNIA, MAY REPEAT X1 Last administered on 04/13/17 19:56; Start 04/08/17 at 18:30; Stop 04/24/17 at 12: 38; Status DC Aripiprazole (Abilify) 20 mg QHS PO ; Start 04/10/17 at 21:00; Stop 04/10/17 at 21:00; Status DC Vitamin D (Vitamin D3) 50,000 unit WEEKLY PO Last administered on 04/24/17 07 :48; Start 04/10/17 at 09:00; Stop 04/24/17 at 12:38; Status DC Aripiprazole (Abilify) 30 mg QHS PO Last administered on 04/15/17 21:06; Start 04/10/17 at 21:00; Stop 04/16/17 at 11:10; Status DC Bupropion HCl (Wellbutrin Xl) 150 mg DAILY PO Last administered on 04/24/17 07:50; Start 04/16/17 at 09:00; Stop 04/24/17 at 12:38; Status DC Divalproex Sodium (Depakote Er) 1,500 mg QHS PO Last administered on 19:42; Start 04/15/17 at 21:00; Stop 04/24/17 at 12:38; Status DC Aripiprazole (Abilify) 35 mg QHS PO Last administered on 04/23/17t 19:41; Start 04/16/17 at 21:00; Stop 04/24/17 at 12:38; Status DC Active Scripts Active Reported Analgesic [place] (Methyl Salicylate/Menthol) 28 Gm Oint...g. 1 Praneeth TP PRN QID PRN Milk Of Magnesia (Magnesium Hydroxide) 2,400 Mg/10 Ml Oral.susp 2,400 Mg PO PRN QHS PRN Mag-Al Plus Xs Suspension (Mag Hydrox/Al Hydrox/Simeth) 30 Ml Oral.susp 15 Ml PO PRN AFTMEALHC PRN Divalproex Sodium Er (Divalproex Sodium) 500 Mg Tab.er.24h 1,500 Mg PO QHS Trazodone Hcl 50 Mg Tablet 50 Mg PO PRN QHS PRN Bupropion Xl (Bupropion Hcl) 150 Mg Tab.er.24h 150 Mg PO DAILY Zyprexa (Olanzapine) 5 Mg Tablet 5 Mg PO PRN Q2HR PRN Levothyroxine Sodium 25 Mcg Tablet 25 Mcg PO DAILY06 D3-50 (Cholecalciferol (Vitamin D3)) 50,000 Unit Capsule 50,000 Unit PO WEEKLY Atorvastatin Calcium 20 Mg Tablet 20 Mg PO QHS Tylenol (Acetaminophen) 325 Mg Tablet 650 Mg PO Q8HRS Vitamin B12 (Cyanocobalamin (Vitamin B-12)) 5,000 Mcg Tab.rapdis 1,000 Mcg PO DAILY Folic Acid 1 Mg Tablet 1 Mg PO DAILY Ibuprofen 400 Mg Tablet 200 Mg PO DAILY08 Abilify (Aripiprazole) 5 Mg Tablet 35 Mg PO HS Topiramate 100 Mg Tablet 150 Mg PO BID Tylenol (Acetaminophen) 325 Mg Tablet 650 Mg PO PRN Q6HRS PRN Diagnosis: Problems: (1) Bipolar affective, mixed, sev w/ psych (2) Schizophrenia, disorganized, subchronic with acute exacerbation (3) Schizoaffective disorder, chronic condition with acute exacerbation (4) Anxiety disorder VIRGIE FELDMAN MD Apr 24, 2017 19:13
--- NOTE | 2017-04-24 23:47 | DS ---
DATE OF DISCHARGE: 04/24/2017 DISCHARGE SUMMARY AND PSYCHIATRIC PROGRESS NOTE This note covers elements not covered in my initial note of 04/24/2017. REASON FOR ADMISSION: Please refer to the admission history for details. Briefly, the patient is a 67-year-old female who is referred to us from [facility] by her primary care physician and psychiatrist at the [facility] on account of increasing agitation, yelling, psychotic symptoms, refusing to eat, isolating herself. This is within the context of her diagnosis of schizoaffective disorder, bipolar type, mixed with psychotic features with acute exacerbation. SIGNIFICANT FINDINGS AND CLINICAL COURSE: Following admission, the patient was seen daily individually by myself from a psychiatric standpoint, medical followup per Dr. Subramanian/Dr. Earl. She was extremely psychotic, agitated, repetitive and withdrawn. She would yell and very difficult to redirect. Adjustments were made in her psychotropics. She seemed to respond to a combination of Depakote ER 1500 mg at bedtime. Valproic acid level was therapeutic at this dosage at 73. Topamax was 150 mg b.i.d., trazodone 50 mg at bedtime p.r.n., may repeat x 1. Abilify 35 mg at bedtime, Ativan and Zyprexa p.r.n., Wellbutrin XL 150 mg a day. Gradually, mood appeared to stabilize. She was not yelling, still repetitive, somatically preoccupied, but much improved and manageable. CONDITION AT DISCHARGE: Improved. REVIEW OF SYSTEMS: No CV, , pulmonary, eye, ENT system symptoms on review. Reliability poor. She has vague somatic symptoms. MENTAL STATUS EXAM: Oriented to herself and situation. Speech coherent, somewhat repetitive. Abstraction fair, computation impaired, language function intact, attention span short. Mood and affect, lability was improved. LABORATORY DATA: Reviewed. FINAL DIAGNOSES: Schizoaffective disorder, bipolar type, mixed with psychotic features, in partial remission; anxiety disorder, unspecified; impulse control disorder, unspecified; history of PTSD. Rest diagnoses unchanged from admission. DISCHARGE MEDICATIONS: Please refer to the MRAD. DISCHARGE INSTRUCTIONS: Outpatient psychiatric and medical followup at the [facility]. VIRGIE FELDMAN MD DR: YUSUF/chely JOB#: [id number] / [id number]
--- NOTE | 2017-04-25 03:17 | PN ---
DATE: 04/23/2017 PSYCHIATRIC PROGRESS NOTE This late entry, date of service, 04/23/2017 covers elements not covered in my initial note of 04/23/2017. SUBJECTIVE: The patient was staffed at a treatment team meeting with the entire team morning of 04/23/2017, seen individually evening of 04/23/2017. She has been fairly cooperative with the medications, still repetitive of phrases, but much less psychotic. She remains somatically preoccupied with vague somatic symptoms, but no specific CV, GI, , pulmonary, eye, ENT system symptoms on review. MENTAL STATUS EXAM: Oriented to herself and situation. Speech is coherent, abstraction fair, computation impaired, language function intact. Attention span short, somewhat obsessive, ruminative, but no clear suicidal or homicidal ideation. No clear psychotic symptoms. LABORATORIES: Reviewed. IMPRESSION: Unchanged from initial note. PLAN: Continue psychotropics mentioned in my initial note. Review drug interactions, risk/benefit ratio favors no further change. VIRGIE FELDMAN MD DR: YUSUF/chely JOB#: [id number] / [id number]
== END 2017-04-24 12:00 | disposition home or self-care (01) | DRG 885 ==
LOC: ER 16:17 → GEROPSY 21:00
PROVIDERS: ADMIT Psychiatry & Neurology Psychiatry; ATTEND Psychiatry & Neurology Psychiatry
DX: F25.0 Schizoaffective disorder, bipolar type (principal); F01.51 Vascular dementia, unspecified severity, with behavioral disturbance; G30.9 Alzheimer's disease, unspecified; F02.81 Dementia in other diseases classified elsewhere, unspecified severity, with behavioral disturbance; N39.0 Urinary tract infection, site not specified; E78.5 Hyperlipidemia, unspecified; F09 Unspecified mental disorder due to known physiological condition; F22 Delusional disorders; F43.10 Post-traumatic stress disorder, unspecified; F63.9 Impulse disorder, unspecified; G43.909 Migraine, unspecified, not intractable, without status migrainosus; G47.00 Insomnia, unspecified; I12.9 Hypertensive chronic kidney disease with stage 1 through stage 4 chronic kidney disease, or unspecified chronic kidney disease; K21.9 Gastro-esophageal reflux disease without esophagitis; M94.0 Chondrocostal junction syndrome [Tietze]; N18.9 Chronic kidney disease, unspecified; Z96.659 Presence of unspecified artificial knee joint; Z88.5 Allergy status to narcotic agent; K64.9 Unspecified hemorrhoids; M79.1 Myalgia; F41.9 Anxiety disorder, unspecified; R63.4 Abnormal weight loss; Z68.25 Body mass index [BMI] 25.0-25.9, adult
CPT/HCPCS: 36415; 70450; 71010; 80048; 80053; 80061; 80076; 80164; 81001; 82306; 82607; 83036; 83540; 83550; 83690; 83735; 84436; 84439; 84443; 84480; 84484; 85025; 86592; 86593; 87086; 87186; 93005; 96365; J0696; 97110; 97116; 97530; 97535; 99285-25